=== PATIENT | female | born 1940 | race African-American/Black ===

== ENCOUNTER 2018-08-22 08:27 | Emergency (ER) | payer OTHER ==
[~2018-08-22] VITALS: Ht 162.6 cm; Wt 86.2 kg
[~2018-08-22 08:27] MED LIST: CALCIUM 600 +1 EAC8; COMPLETE SENIO1 EACH; FERROUS GLUCON240 MG PO; FIBER THERAPY PO; HYDROCHLOROTHIA25 MG PO; LEVOTHYROXINE125 MCG PO; LOSARTAN POTAS100 MG PO; LOSARTAN POTASS50 MG PO; LOVASTATIN20 MG PO; METFORMIN PO; OMEPRAZOLE20 M1 PO; VITAMIN C PO; [UNRECOGNIZED DRUG - OTHER] PO
--- OUTSIDE RECORDS SUMMARY | 2018-08-22 08:30 | XMS REPORT | Clinical Summary ---
Author Author [facility] Organization [facility] Address Unknown Phone Unavailable Care Team Providers Care Airway Controller Name Role Phone Charles Cole MD PCP Allergies Comments Active Allergy Reactions Severity Noted Date Iodine Hives Medium 07/20/2018 Penicillins Swelling Medium 07/20/2018 Medications End Date Status Medication Sig Dispensed Refills Start Date Active multivitamin with Take 1 tablet 0 minerals tablet by mouth daily. Active calcium carbonate-vitamin Take 1 tablet 0 D3 500 mg-200 unit per by mouth 2 tablet (two) times a day with meals. Active polyethylene glycol Take 17 g by 0 (MIRALAX) 17 gram packet mouth daily as needed for constipation. 07/22/2018 Discontinued levothyroxine (SYNTHROID, Take 112 mcg 0 LEVOXYL) 112 mcg tablet by mouth daily. 07/22/2018 Discontinued metFORMIN (GLUCOPHAGE) Take 500 mg 0 500 mg tablet by mouth daily with breakfast. 07/22/2018 Discontinued omeprazole (PriLOSEC) 40 Take 40 mg by 0 MG capsule mouth daily. 07/22/2018 Discontinued lovastatin (MEVACOR) 10 Take 20 mg by 0 MG tablet mouth nightly. 07/22/2018 Discontinued clopidogrel (PLAVIX) 75 Take 75 mg by 0 mg tablet mouth daily. 07/22/2018 Discontinued gabapentin (NEURONTIN) Take 100 mg 0 100 mg capsule by mouth 3 (three) times a day. 07/22/2018 Discontinued metoprolol tartrate Take 25 mg by 0 (LOPRESSOR) 25 mg tablet mouth 2 (two) times a day. 08/21/2018 metoprolol tartrate Take 1 tablet 60 tablet 0 (LOPRESSOR) 25 mg tablet (25 mg total) 9 by mouth 2 (two) times a day for 30 days. 08/21/2018 metFORMIN (GLUCOPHAGE) Take 1 tablet 30 tablet 0 500 mg tablet (500 mg 9 total) by mouth daily with breakfast for 30 days. 08/21/2018 lovastatin (MEVACOR) 10 Take 2 60 tablet 0 07/22/201 MG tablet tablets (20 9 mg total) by mouth nightly for 30 days. 08/21/2018 gabapentin (NEURONTIN) Take 1 90 capsule 0 100 mg capsule capsule (100 9 mg total) by mouth 3 (three) times a day for 30 days. 07/28/2018 predniSONE (DELTASONE) 20 Take 1 tablet 5 tablet 0 07/23/ mg tablet (20 mg total) 9 by mouth daily for 5 days. 08/21/2018 clopidogrel (PLAVIX) 75 Take 1 tablet 30 tablet 0 201 mg tablet (75 mg total) 9 by mouth daily for 30 days. 08/21/2018 omeprazole (PriLOSEC) 40 Take 1 30 capsule 0 MG capsule capsule (40 9 mg total) by mouth daily for 30 days. 08/21/2018 levothyroxine (SYNTHROID, Take 1 tablet 30 tablet 0 LEVOXYL) 112 mcg tablet (112 mcg 9 total) by mouth daily for 30 days. Active Problems Problem Noted Date Right knee pain 07/20/2018 Encounters Care Team Description Date Type Specialty Paul, MD Jarvis Alcocer Jr., Tanseem Hamad Mohamed A, MD Allencherril, Mike Damian MD Right knee pain, unspecified chronicity (Primary Dx); Physical deconditioning 07/20/2018 Emergency General Internal Medicine - 07/23/2018 07/20/2018 Travel after 08/21/2017 Social History Date Tobacco Use Types Packs/Day Years Used Never Smoker Smokeless Tobacco: Never Used Alcohol Use Drinks/Week oz/Week Comments No Alcohol Habits Answer Date Recorded How often do you have a drink containing alcohol? Never 07/20/2018 How many drinks containing alcohol do you have on Not asked a typical day when you are drinking? How often do you have six or more drinks on one Not asked occasion? Sex Assigned at Date Recorded Not on file Industry Job Start Date Occupation Not on file Not on file Not on file Travel End Travel History Travel Start No recent travel history available. Last Filed Vital Signs Time Taken Vital Sign Reading 07/23/2018 7:32 AM CDT Blood Pressure 179/76 07/23/2018 8:00 AM CDT Pulse 76 07/23/2018 7:32 AM CDT Temperature 36.5 C (97.7 F) 07/23/2018 7:32 AM CDT Respiratory Rate 17 07/23/2018 7:32 AM CDT Oxygen Saturation 97% - Inhaled Oxygen - Concentration 07/20/2018 5:32 PM CDT Weight 83.9 kg (185 lb) 07/20/2018 11:52 PM CDT Height 167.6 cm (5' 6") 07/20/2018 5:32 PM CDT Body Mass Index 29.86 Plan of Treatment Health Maintenance Due Date Last Done Comments SHINGLES VACCINES (#1) 1989 65+ PNEUMOCOCCAL VACCINE 2004 (1 of 2 - PCV13) PNEUMOCOCCAL 2004 POLYSACCHARIDE VACCINE AGE 65 AND OVER INFLUENZA VACCINE 10/19/2018 Procedures Comments Procedure Name Priority Date/Time Associated Diagnosis POC GLUCOSE Routine 07/23/2018 6:08 AM CDT POC GLUCOSE Routine 07/22/2018 8:04 PM CDT POC GLUCOSE Routine 07/22/2018 4:16 PM CDT POC GLUCOSE Routine 07/22/2018 11:15 AM CDT POC GLUCOSE Routine 07/22/2018 6:22 AM CDT ESTIMATED GFR Routine 07/22/2018 5:05 AM CDT HC COMPLETE BLD COUNT Routine 07/22/2018 W/AUTO DIFF 5:05 AM CDT BASIC METABOLIC PANEL Routine 07/22/2018 5:05 AM CDT POC GLUCOSE Routine 07/21/2018 8:43 PM CDT POC GLUCOSE Routine 07/21/2018 4:15 PM CDT POC GLUCOSE Routine 07/21/2018 10:47 AM CDT POC GLUCOSE Routine 07/21/2018 6:03 AM CDT ESTIMATED GFR Routine 07/21/2018 5:41 AM CDT THYROID STIMULATING Routine 07/21/2018 HORMONE 5:41 AM CDT LIPID PANEL Routine 07/21/2018 5:41 AM CDT B NATRIURETIC PEPTIDE Routine 07/21/2018 5:41 AM CDT BASIC METABOLIC PANEL Routine 07/21/2018 5:41 AM CDT PROTHROMBIN TIME WITH INR Routine 07/21/2018 5:41 AM CDT HC COMPLETE BLD COUNT Routine 07/21/2018 W/AUTO DIFF 5:41 AM CDT POC GLUCOSE Routine 07/21/2018 12:01 AM CDT XR KNEE 4+ VW RIGHT STAT 07/20/2018 7:06 PM CDT GRAM STAIN Routine 07/20/2018 6:53 PM CDT URINE CULTURE Routine 07/20/2018 6:53 PM CDT ESTIMATED GFR STAT 07/20/2018 6:29 PM CDT B NATRIURETIC PEPTIDE STAT 07/20/2018 6:29 PM CDT TROPONIN Routine 07/20/2018 6:29 PM CDT HC COMPLETE BLD COUNT STAT 07/20/2018 W/AUTO DIFF 6:29 PM CDT COMPREHENSIVE METABOLIC STAT 07/20/2018 PANEL 6:29 PM CDT URINALYSIS SCREEN AND Routine 07/20/2018 MICROSCOPY, WITH REFLEX 6:27 PM CDT TO CULTURE ECG ED PRELIMINARY Routine 07/20/2018 INTERPRETATION 6:15 PM CDT ECG 12-LEAD STAT 07/20/2018 6:05 PM CDT after 08/21/2017 Results * POC glucose (07/23/2018 6:08 AM CDT) Only the most recent of 10 results within the time period is included. [facility] POC glucose 96 65 - 100 mg/dL [facility] Comment: SABIANIST SAN Meter ID: [id number] [facility] Solar Installation Technician: Rafaela Charlton [facility] Specimen Performing Organization Address City/[facility] Mex[facility]ode Phone Number [facility] OF [address] * Estimated GFR (07/22/2018 5:05 AM CDT) Only the most recent of 3 results within the time period is included. [facility] Estimated GFR 81 mL/min/1.73 m2 [facility] G1 >=90 Normal or high G2 60-89Mildly decreased [id number] Mildly to moderately decreased [id number] Moderately to severely decreased G4 15-29Severely decreased G5 <15Kidney failure The eGFR was calculated using the Chronic Kidney Disease Epidemiology Collaboration (CKD-EPI) equation. Interpretation is based on recommendations of the National Kidney Foundation-Kidney Disease Outcomes Quality Initiative (NKF-KDOQI) published in 2014. Specimen Plasma specimen Performing Organization Address City/[facility]/Zipcode Phone Number [facility] [place] [address] PATHOLOGY [facility]ICINE [address] * CBC with platelet and differential (07/22/2018 5:05 AM CDT) Only the most recent of 3 results within the time period is included. [facility] WBC 9.4 4.2 - 11.0 k/uL [facility] RBC 3.63 (L) 4.04 - 5.86 m/uL [facility] HGB 10.1 (L) 11.5 - 15.3 g/dL [facility] HCT 32.9 (L) 34.0 - 45.0 % [facility] MCV 90.6 80.0 - 98.0 fL [facility] MCH 27.8 27.0 - 34.0 pg [facility] MCHC 30.7 (L) 31.5 - 36.5 g/dL [facility] RDW - SD 45.0 37.0 - 51.0 fL [facility] MPV 10.0 7.4 - 10.4 fL [facility] Platelet count 466 (H) 150 - 400 k/uL [facility] Nucleated RBC 0.00 /100 WBC [facility] Neutrophils 59.9 36.0 - 66.0 % [facility] Lymphocytes 32.6 24.0 - 44.0 % [facility] Monocytes 6.3 (H) 0.0 - 6.0 % [facility] Eosinophils 0.5 0.0 - 6.0 % [facility] Basophils 0.5 0.0 - 1.2 % [facility] Immature 0.2 0.0 - 1.0 % [facility] granulocytes [facility] Specimen Blood Performing Organization Address City/State/Zipcode Phone Number [facility] OF [address] [place] [address] PATHOLOGY AND GENOMIC MEDICINE [address] * Basic metabolic panel (07/22/2018 5:05 AM CDT) Only the most recent of 2 results within the time period is included. Sodium 141 135 - 150 mEq/L [facility] Potassium 3.9 3.5 - 5.0 mEq/L [facility] Chloride 101 98 - 112 mEq/L [facility] CO2 27 24 - 31 mmol/L [facility] Anion gap 13@ANIO 7 - 15 mEq/L [facility] BUN 24 (H) 7 - 18 mg/dL [facility] Creatinine 0.80 0.50 - 0.90 mg/dL [facility] Glucose 95 65 - 100 mg/dL [facility] Calcium 10.0 8.8 - 10.2 mg/dL [facility] Specimen Plasma specimen Performing Organization Address City/[facility]/Zipcode Phone Number [facility] DEPARTMENT OF [address] [place] [address] PATHOLOGY AND GENOMIC MEDICINE [place] [id number] * Prothrombin time with INR (07/21/2018 5:41 AM CDT) Pathologist [facility] Prothrombin 14.0 11.5 - 14.5 sec [facility] INR 1.11 [facility] Comment: SABIANIST [facility] For patients on anticoagulant BHAVANI therapy, reference ranges HOSPITAL below: Indication: INR Value Treatment of Venous Thrombosis, 2.0-3.0 pulmonary emboli, or prophylaxis of a venous thrombosis, or systemic emboli. High dose, high risk patients 3.0-4.5 with mechanical valves. NOTE:INR values over 3.0 are sometimes associated with gastrointestinal hemorrhage, especially values over 4.0. Specimen Blood Performing Organization Address City/[facility] Mexicocode Phone Number [facility] DEPARTMENT OF [address] [place] [address] PATHOLOGY AND GENOMIC MEDICINE [facility] [address] * Thyroid stimulating hormone (07/21/2018 5:41 AM CDT) Pathologist [facility] TSH 19.44 (H) 0.27 - 4.20 uIU/mL [facility] Specimen Plasma specimen Performing Organization Address City/State/Zipcode Phone Number [facility] DEPARTMENT OF [address] [place] [address] PATHOLOGY AND GENOMIC MEDICINE [place] [id number] * B natriuretic peptide (07/21/2018 5:41 AM CDT) Only the most recent of 2 results within the time period is included. Pathologist [facility] BNP 30 0 - 100 pg/mL [facility] Specimen Blood Performing Organization Address City/[facility]/Zipcode Phone Number [facility] DEPARTMENT OF [address] [place] [address] PATHOLOGY AND GENOMIC MEDICINE [facility] AGUIL[address] * Lipid panel (07/21/2018 5:41 AM CDT) Cholesterol 116 0 - 199 mg/dL [facility] Triglycerides 87 0 - 149 mg/dL [facility] HDL cholesterol 39 (L) 40 - 9,999 mg/dL [facility] LDL cholesterol 74Comment: Result obtained by 0 - 99 mg/dL [facility] direct LDL measurement [facility] Lipid panel See below [facility] interpretation Comment: [facility] Total Cholesterol [facility] (mg/dL) [facility] LDL Cholesterol (mg/dL) <200 Desirable <100 Optimal 200-239Borderline -[id number] 29Near or above optimal >=240High 130-159Borderline- high 160-189High >=190Very high HDL Cholesterol (mg/dL) Triglycerides (mg/dL) <40Low <150 Normal >=60 High 150-199Borderline- high 200-499High >=500Very high Risk Catergories that modify LDL goals. Risk Catergories LDL goal (mg/dL) CHD and CHD risk equivalent <100 (10-year risk >20%) Multiple (2+) risk factors <130 (10-year risk=<20%) 0-1 risk factors <160 (<10-year risk) Defining levels of lipids in metabolic syndrome Triglycerides >=150 mg/dL HDL Cholesterol Men <40 mg/dL Women <50 mg/dL Non-HDL cholesterol is a second target for therapy in persons with high triglycerides (>=200 mg/dL) Specimen Plasma specimen Performing Organization Address City/[facility]/Zipcode Phone Number [facility] DEPARTMENT OF [address] [place] [address] PATHOLOGY AND GENOMIC MEDICINE [facility] [address] * XR Knee 4+ Vw Right (07/20/2018 7:06 PM CDT) Specimen Narrative Performed At EXAMINATION:XR KNEE 4VW RIGHT HM [facility] CLINICAL HISTORY:pain COMPARISON:None. IMPRESSION: No acute fracture or dislocation is present. 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 These are most significant in the medial compartment. A moderately-sized suprapatellar joint effusion is present. [id number] Procedure Note Hm Interface, Radiology Results Incoming - 07/20/2018 7:19 PM CDT EXAMINATION: XR KNEE 4 VW RIGHT CLINICAL HISTORY: pain COMPARISON: None. IMPRESSION: No acute fracture or dislocation is present. 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 These are most significant in the medial compartment. A moderately-sized suprapatellar joint effusion is present. [id number] Performing Organization Address City/[facility]/Zipcode Phone Number [facility] [address] [place] [address] * Gram stain (07/20/2018 6:53 PM CDT) Pathologist [facility] Gram stain No WBC's or organisms seen. [facility] result Comment: SABIANIST Specimen [facility] Specimen Source: Urine Specimen Site: Clean catch Specimen Urine Performing Organization Address [facility] Mex[facility]ode Phone Number [facility] [place] [address] PATHOLOGY AND [facility] MEDICINE [address] * Urine culture (07/20/2018 6:53 PM CDT) Pathologist [facility] Urine culture Mixed maribell <=10-3 col/cc [facility] isolate Comment: SABIANIST Specimen Information HOSPITAL Specimen Source: Urine Specimen Site: Clean catch Specimen Urine Performing Organization Address [facility] Mex[facility]ocotx Phone Number [facility] DEPARTMENT OF [address] [place] [address] PATHOLOGY AND GENOMIC MEDICINE [address] * Troponin (07/20/2018 6:29 PM CDT) Pathologist [facility] Troponin <0.30 0.00 - 0.30 ng/mL [facility] Comment: SABIANIST AGUILAR 0.11 - 1.49 [facility] indicate increased risk of acute coronary syndrome. >=1.5 ng/ml Consistent with acute myocardial infarction. The diagnostic value of a single normal or non-diagnostic result is questionable.Serial samples at 2-6 hour intervals are required to rule out acute myocardial injury. Specimen Plasma specimen Performing Organization Address City/State/Zipcode Phone Number [facility] DEPARTMENT OF [address] [place] [address] PATHOLOGY AND GENOMIC MEDICINE [place] [address] [address] * Comprehensive metabolic panel (07/20/2018 6:29 PM CDT) Sodium 139 135 - 150 mEq/L [facility] Potassium 3.8 3.5 - 5.0 mEq/L [facility] Chloride 100 98 - 112 mEq/L [facility] CO2 24 24 - 31 mmol/L [facility] Anion gap 15@ANIO 7 - 15 mEq/L [facility] BUN 17 7 - 18 mg/dL [facility] Creatinine 0.90 0.50 - 0.90 mg/dL [facility] Glucose 211 (H) 65 - 100 mg/dL [facility] Calcium 9.2 8.8 - 10.2 mg/dL [facility] Protein 8.1 6.3 - 8.3 g/dL [facility] Albumin 3.0 (L) 3.5 - 5.0 g/dL [facility] A/G ratio 0.6 (L) 0.7 - 3.8 [facility] Alkaline 143 (H) 0 - 104 U/L [facility] phosphatase [facility] AST 45 (H) 10 - 35 U/L [facility] ALT 30 5 - 50 U/L [facility] Total bilirubin 0.4 0.2 - 1.2 mg/dL [facility] Specimen Plasma specimen Performing Organization Address City/State/Zipcode Phone Number [facility] OF [address] [place] [address] PATHOLOGY AND GENOMIC MEDICINE [place] [address] [address] * Urinalysis screen and microscopy, with reflex to culture (07/20/2018 6:27 PM CDT) Specimen site Clean catch [facility] Color, UA Mari [facility] Appearance, UA Clear [facility] Specific 1.028 1.001 - 1.035 [facility] gravity, UA [facility] pH, UA 5.0 5.0 - 8.5 [facility] Protein, UA 1+ (A) Negative [facility] Glucose, UA Negative Negative [facility] Ketones, UA Negative Negative [facility] Bilirubin, UA Negative Negative [facility] Blood, UA Negative Negative [facility] Nitrite, UA Negative Negative [facility] Urobilinogen, 4.0 (A) <2.0 [facility] Leukocyte Negative Negative [facility] esterase, [facility] Epithelial Many /HPF [facility] cells, [facility] WBC, UA 10 (A) 0 - 5 /HPF [facility] RBC, UA 2 0 - 5 /HPF [facility] Bacteria, UA None seen None seen [facility] Yeast, UA None seen [facility] Yeast with None seen [facility] pseudohyphae, [facility] Hyaline casts, 1 /LPF [facility] Specimen Urine Performing Organization Address City/State/Zipcode Phone Number [facility] DEPARTMENT OF [facility] [place] [address] PATHOLOGY AND GENOMIC MEDICINE [facility] [address] * ECG ED Preliminary Interpretation - Not an Order (07/20/2018 6:15 PM CDT) Narrative Performed At Narendra Miller Jr., MD 07/21/2018 10:03 AM ECG ED Preliminary Interpretation - Not an Order Performed by: Narendra Miller Jr., MD Authorized by: Narendra Miller Jr., MD ECG reviewed by ED Physician in the absence of a tanning solution maker: yes Previous ECG: Previous ECG:Unavailable Interpretation: Interpretation: normal Rate: ECG rate:89 ECG rate assessment: normal QRS: QRS axis:Left T waves: T waves: inverted Inverted:II, III, aVF, V6 and V3 * ECG 12 lead (07/20/2018 6:05 PM CDT) Ventricular 89 [facility] rate Atrial rate 89 [facility] MO interval 144 [facility] QRSD interval 88 [facility] QT interval 362 [facility] QTC interval 440 [facility] P axis 1 61 [facility] QRS axis 1 -34 [facility] T wave axis 194 [facility] EKG impression Normal sinus rhythm-Left axis [facility] deviation-T wave abnormality, consider inferior ischemia-T wave abnormality, consider anterolateral ischemia-Abnormal ECG-No previous ECGs available- Specimen Narrative Performed At Performing Organization Address City/State/Zipcode Phone Number [facility] [address] [place] [address] after 08/21/2017 Insurance Type Payer Benefit Subscriber ID Effective Phone Address Plan / Dates Group HMO [employer] TEX[employer] xxxxxxxxx 2018-P PATITO mustafa (Home) [place] [address] Advance Directives Patient has advance care planning documents on file. For more information, dave christine contact: Efrain Burgess [address] [place] [address]
--- OUTSIDE RECORDS SUMMARY | 2018-08-22 08:31 | XMS REPORT ---
Author Author [facility] Address Unknown Phone Unavailable Care Team Providers Care Agriculture Engineer Name Role Phone Unavailable Unavailable Payers Payer Name Policy Type Policy Number Effective Date Expiration Date Problems This patient has no known problems. Allergies, Adverse Reactions, Alerts Allergy Name Allergy Type Status Severity Reaction(s) Onset Date Inactive Date Treating Clinician Comments Cephalosporins DA Active U 2018-06-06 00:00:00 Sulfa (Sulfonamide Antibiotics) DA Active U 2018-06-06 00:00:00 codeine DA Active U 2018-06-06 00:00:00 aspirin DA Active U 2018-06-06 00:00:00 penicillin V DA Active U 2018-06-06 00:00:00 erythromycin base DA Active U 2018-06-06 00:00:00 metronidazole DA Active U 2018-06-06 00:00:00 oxaprozin DA Active U 2018-06-06 00:00:00 .DURAPHEN DA Active U 2007-01-19 00:00:00 ASPIRIN DA Active U 2007-01-19 00:00:00 CEPHALOSPORINS DA Active U 2007-01-19 00:00:00 CODEINE DA Active U 2007-01-19 00:00:00 DAYPRO DA Active U 2007-01-19 00:00:00 EES - ERYTHROMYCIN DA Active U 2007-01-19 00:00:00 FLAGYL DA Active U 2007-01-19 00:00:00 MYCIN ANTIBIOTICS DA Active U 2007-01-19 00:00:00 No Known Contrast Allergies DA Active U 2007-01-19 00:00:00 No Known Food Allergies DA Active U 2007-01-19 00:00:00 No Known Other Allergies DA Active U 2007-01-19 00:00:00 PENICILLIN DA Active U 2007-01-19 00:00:00 SULFA DRUGS DA Active U 2007-01-19 00:00:00 codeine DA Active U 2002-04-09 00:00:00 aspirin DA Active U 2002-04-09 00:00:00 penicillin V DA Active U 2002-04-09 00:00:00 erythromycin base DA Active U 2002-04-09 00:00:00 oxaprozin DA Active U 2002-04-09 00:00:00 Medications This patient has no known medications. Results Test Description Test Time Test Comments Text Results Atomic Results Result Comments GLUBED 2018-06-16 16:56:00 GLUBED (test code=GLUBED) 144 MG/DL 70-110 Performed by certified radial drill press set up operator at [facility] [id number] 13:01:00* Test Item Value Reference Range Comments GLUBED (test code=GLUBED) 107 MG/DL 70-110 Performed by certified radial drill press set up operator at [facility] [id number] 08:55:00* Test Item Value Reference Range Comments GLUBED (test code=GLUBED) 87 MG/DL 70-110 Performed by certified radial drill press set up operator at [facility] BASIC METABOLIC [id number] 07:44:00* Test Item Value Reference Range Comments SODIUM (test code=NA) 138 mEq/L 134-147 POTASSIUM (test code=K) 3.9 mEq/L 3.4-5.0 CHLORIDE (test code=CL) 106 mEq/L 100-108 CARBON DIOXIDE (test code=CO2) 23 mEq/L 21-33 ANION GAP (test code=GAP) 13 0-20 GLUCOSE (test code=GLU) 93 mg/dL 70-110 BLOOD UREA NITROGEN (test code=BUN) 12 mg/dL 7-18 GLOMERULAR FILTRATION RATE (test code=GFR) 69.2 70-80 Units of measure=ml/min/1.73 m2 CREATININE (test code=CREAT) 0.8 mg/dL 0.6-1.3 CALCIUM (test code=CA) 8.8 mg/dL 8.0-10.5 [id number] 21:16:00* Test Item Value Reference Range Comments GLUBED (test code=GLUBED) 134 MG/DL 70-110 Performed by certified radial drill press set up operator at [facility] [id number] 17:19:00* Test Item Value Reference Range Comments GLUBED (test code=GLUBED) 100 MG/DL 70-110 Performed by certified radial drill press set up operator at [facility] [id number] 12:22:00* Test Item Value Reference Range Comments GLUBED (test code=GLUBED) 177 MG/DL 70-110 Performed by certified radial drill press set up operator at [facility] [id number] 08:54:00* Test Item Value Reference Range Comments GLUBED (test code=GLUBED) 97 MG/DL 70-110 Performed by certified radial drill press set up operator at [facility] BASIC METABOLIC [id number] 08:18:00* Test Item Value Reference Range Comments SODIUM (test code=NA) 135 mEq/L 134-147 POTASSIUM (test code=K) 4.6 mEq/L 3.4-5.0 CHLORIDE (test code=CL) 108 mEq/L 100-108 CARBON DIOXIDE (test code=CO2) 19 mEq/L 21-33 ANION GAP (test code=GAP) 13 0-20 GLUCOSE (test code=GLU) 86 mg/dL 70-110 BLOOD UREA NITROGEN (test code=BUN) 12 mg/dL 7-18 GLOMERULAR FILTRATION RATE (test code=GFR) 69.2 70-80 Units of measure=ml/min/1.73 m2 CREATININE (test code=CREAT) 0.8 mg/dL 0.6-1.3 CALCIUM (test code=CA) 8.0 mg/dL 8.0-10.5 CREATINE KINASE (CK)2018-06-15 08:18:00* Test Item Value Reference Range Comments CREATINE KINASE (CK) (test code=CK) 538 35-232 Result is in INTERNATIONAL UNITS/LITER [id number] 20:19:00* Test Item Value Reference Range Comments GLUBED (test code=GLUBED) 161 MG/DL 70-110 Performed by certified radial drill press set up operator at [facility] [id number] 17:53:00* Test Item Value Reference Range Comments GLUBED (test code=GLUBED) 155 MG/DL 70-110 Performed by certified radial drill press set up operator at [facility] [id number] 12:14:00* Test Item Value Reference Range Comments GLUBED (test code=GLUBED) 106 MG/DL 70-110 Performed by certified radial drill press set up operator at [facility] [id number] 07:58:00* Test Item Value Reference Range Comments GLUBED (test code=GLUBED) 89 MG/DL 70-110 Performed by certified radial drill press set up operator at [facility] BASIC METABOLIC [id number] 07:37:00* Test Item Value Reference Range Comments SODIUM (test code=NA) 136 mEq/L 134-147 POTASSIUM (test code=K) 5.4 mEq/L 3.4-5.0 SPECIMEN 1+ HEMOLYZED.Results known to be adversely affected by hemolysis are: Potassium Magnesium LDH Phosphorus CHLORIDE (test code=CL) 110 mEq/L 100-108 CARBON DIOXIDE (test code=CO2) 18 mEq/L 21-33 ANION GAP (test code=GAP) 13 0-20 GLUCOSE (test code=GLU) 70 mg/dL 70-110 BLOOD UREA NITROGEN (test code=BUN) 12 mg/dL 7-18 GLOMERULAR FILTRATION RATE (test code=GFR) 69.2 70-80 Units of measure=ml/min/1.73 m2 CREATININE (test code=CREAT) 0.8 mg/dL 0.6-1.3 CALCIUM (test code=CA) 8.1 mg/dL 8.0-10.5 [id number] 20:58:00* Test Item Value Reference Range Comments GLUBED (test code=GLUBED) 158 MG/DL 70-110 Performed by certified radial drill press set up operator at [facility] [id number] 17:30:00* Test Item Value Reference Range Comments GLUBED (test code=GLUBED) 100 MG/DL 70-110 Performed by certified radial drill press set up operator at [facility] [id number] 13:40:00* Test Item Value Reference Range Comments GLUBED (test code=GLUBED) 119 MG/DL 70-110 Performed by certified radial drill press set up operator at [facility] BASIC METABOLIC [id number] 08:20:00* Test Item Value Reference Range Comments SODIUM (test code=NA) 140 mEq/L 134-147 POTASSIUM (test code=K) 3.8 mEq/L 3.4-5.0 CHLORIDE (test code=CL) 109 mEq/L 100-108 CARBON DIOXIDE (test code=CO2) 25 mEq/L 21-33 ANION GAP (test code=GAP) 10 0-20 GLUCOSE (test code=GLU) 97 mg/dL 70-110 BLOOD UREA NITROGEN (test code=BUN) 14 mg/dL 7-18 GLOMERULAR FILTRATION RATE (test code=GFR) 69.2 70-80 Units of measure=ml/min/1.73 m2 CREATININE (test code=CREAT) 0.8 mg/dL 0.6-1.3 CALCIUM (test code=CA) 7.9 mg/dL 8.0-10.5 [id number] 08:20:00* Test Item Value Reference Range Comments PHOSPHOROUS (test code=PHOS) 2.8 mg/dL 2.5-4.9 CREATINE KINASE (CK)2018-06-13 08:20:00* Test Item Value Reference Range Comments CREATINE KINASE (CK) (test code=CK) 1247 35232 Result is in INTERNATIONAL UNITS/LITER [id number] 08:20:00* Test Item Value Reference Range Comments MAGNESIUM (test code=MAG) 2.20 mg/dL 1.8-2.4 [id number] 08:17:00* Test Item Value Reference Range Comments GLUBED (test code=GLUBED) 93 MG/DL 70-110 Performed by certified radial drill press set up operator at [facility] [id number] 20:37:00* Test Item Value Reference Range Comments GLUBED (test code=GLUBED) 154 MG/DL 70-110 Performed by certified radial drill press set up operator at [facility] [id number] 16:50:00* Test Item Value Reference Range Comments GLUBED (test code=GLUBED) 186 MG/DL 70-110 Performed by certified radial drill press set up operator at [facility] [id number] 12:40:00* Test Item Value Reference Range Comments GLUBED (test code=GLUBED) 102 MG/DL 70-110 Performed by certified radial drill press set up operator at [facility] CREATINE KINASE (CK)2018-06-12 11:29:00* Test Item Value Reference Range Comments CREATINE KINASE (CK) (test code=CK) 2008 35-232 Result is in INTERNATIONAL UNITS/LITER [id number] 08:33:00* Test Item Value Reference Range Comments GLUBED (test code=GLUBED) 100 MG/DL 70-110 Performed by certified radial drill press set up operator at [facility] BASIC METABOLIC [id number] 08:05:00* Test Item Value Reference Range Comments SODIUM (test code=NA) 139 mEq/L 134-147 POTASSIUM (test code=K) 3.8 mEq/L 3.4-5.0 CHLORIDE (test code=CL) 107 mEq/L 100-108 CARBON DIOXIDE (test code=CO2) 26 mEq/L 21-33 ANION GAP (test code=GAP) 10 0-20 GLUCOSE (test code=GLU) 113 mg/dL 70-110 BLOOD UREA NITROGEN (test code=BUN) 16 mg/dL 7-18 GLOMERULAR FILTRATION RATE (test code=GFR) 60.4 70-80 Units of measure=ml/min/1.73 m2 CREATININE (test code=CREAT) 0.9 mg/dL 0.6-1.3 CALCIUM (test code=CA) 8.4 mg/dL 8.0-10.5 [id number] 21:47:00* Test Item Value Reference Range Comments GLUBED (test code=GLUBED) 174 MG/DL 70-110 Performed by certified radial drill press set up operator at [facility] [id number] 16:51:00* Test Item Value Reference Range Comments GLUBED (test code=GLUBED) 132 MG/DL 70-110 Performed by certified radial drill press set up operator at [facility] URINALYSIS [id number] 16:08:00* Test Item Value Reference Range Comments UA COLOR (test code=COLU) YELLOW YEL/STRAW UA APPEARANCE (test code=APPU) CLEAR CLEAR UA GLUCOSE DIPSTICK (test code=DGLUU) NEGATIVE NEGATIVE UA BILIRUBIN DIPSTICK (test code=BILU) NEGATIVE NEGATIVE UA KETONE DIPSTICK (test code=KETU) NEGATIVE NEGATIVE UA SPECIFIC GRAVITY (test code=SGU) 1.015 1.005-1.030 UA BLOOD DIPSTICK (test code=NATALIYA) NEGATIVE NEGATIVE UA PH DIPSTICK (test code=NIKKI) 6.0 5.0-7.0 UA PROTEIN DIPSTICK (test code=PROU) NEGATIVE NEGATIVE UA UROBILINIOGEN DIPSTICK (test code=URO) 4.0 mg/dL 0.2-1.0 UA NITRITE DIPSTICK (test code=ANA PAULA) NEGATIVE NEGATIVE UA LEUKOCYTE ESTERASE DIPSTICK (test code=LEUU) NEGATIVE NEGATIVE UA WBC (test code=WBCU) 0-3 WBC/HPF 0-3 UA RBC (test code=RBCU) 0-3 RBC/HPF 0-3 UA BACTERIA (test code=BACU) NONE SEEN /HPF NONE SEEN UA SQUAMOUS CELLS (test code=SQU) NONE SEEN /HPF NONE SEEN UA MUCUS (test code=MUCU) TRACE /LPF NONE SEEN UA YEAST (BUDDING) (test code=YEASTUBD) 1+ /HPF NONE UA CULT [id number] 16:08:00* Test Item Value Reference Range Comments UA CULTURE NEEDED? (test code=UACULT) NO, WBC<10 Criteria Culture Chk Criteria not met, Urine Culture cancelled. [id number] 12:09:00* Test Item Value Reference Range Comments GLUBED (test code=GLUBED) 145 MG/DL 70-110 Performed by certified radial drill press set up operator at [facility] BASIC METABOLIC [id number] 08:10:00* Test Item Value Reference Range Comments SODIUM (test code=NA) 140 mEq/L 134-147 POTASSIUM (test code=K) 3.6 mEq/L 3.4-5.0 CHLORIDE (test code=CL) 108 mEq/L 100-108 CARBON DIOXIDE (test code=CO2) 23 mEq/L 21-33 ANION GAP (test code=GAP) 13 0-20 GLUCOSE (test code=GLU) 101 mg/dL 70-110 BLOOD UREA NITROGEN (test code=BUN) 13 mg/dL 7-18 GLOMERULAR FILTRATION RATE (test code=GFR) 80.7 70-80 Units of measure=ml/min/1.73 m2 CREATININE (test code=CREAT) 0.7 mg/dL 0.6-1.3 CALCIUM (test code=CA) 8.3 mg/dL 8.0-10.5 CREATINE KINASE (CK)2018-06-11 08:10:00* Test Item Value Reference Range Comments CREATINE KINASE (CK) (test code=CK) 4451 35-232 Result is in INTERNATIONAL UNITS/LITER [id number] 07:53:00* Test Item Value Reference Range Comments GLUBED (test code=GLUBED) 92 MG/DL 70-110 Performed by certified radial drill press set up operator at [facility] [id number] 20:14:00* Test Item Value Reference Range Comments GLUBED (test code=GLUBED) 130 MG/DL 70-110 Performed by certified radial drill press set up operator at [facility] [id number] 17:19:00* Test Item Value Reference Range Comments GLUBED (test code=GLUBED) 105 MG/DL 70-110 Performed by certified radial drill press set up operator at [facility] - DUP VEIN [id number] 13:21:00 Name: SOLEDAD FRASER [facility] : 1940 Age/S: 78 / F [address] [place] [address] Blvd Unit #: [id number] Loc: [place] [address] Phys: Theodore Alvarez SHELLS INSPECTOR Acct: [id number] Dis Date: Status: ADM IN PHONE #: [phone] Exam Date: 06/10/2018 1235 FAX #: [phone] Reason: Right LE swelling EXAMS: CPT CODE: [id number] DUP VEIN RUTH [address] PROCEDURE: BILATERAL LOWER EXTREMITY VENOUS ULTRASOUND INDICATION: Right lower extremity edema COMPARISON: None. TECHNIQUE: Sonographic evaluation of the bilateral lower extremity veins was performed using high resolution B-mode, pulse and color Doppler imaging. FINDINGS: RIGHT: The common femoral, femoral, popliteal and visualized calf veins are patent. Normal venous waveforms. The saphenofemoral junction is unremarkable. LEFT: The femoral, popliteal and visualized calf veins are patent. Normal venous waveforms. There is a short segment of nonocclusive thrombus present within the left common femoral vein. IMPRESSION: 1. No occlusive deep venous thrombosis. 2. Short segment nonocclusive thrombus noted within the left common femoral vein. SL:01 at 1321 Reported and signed by: Gabino Andrea M.D. CC: Theodore Alvarez NP Technologist: Susan Cox RDMS(AB)(OB) Trnscb Date/Time: 06/10/2018 (132) Suhas Orig Print D/T: S: 06/10/2018 (1324) Probe: PAGE 1 Signed Report [id number] 12:29:00* Test Item Value Reference Range Comments GLUBED (test code=GLUBED) 133 MG/DL 70-110 Performed by certified radial drill press set up operator at [facility] BASIC METABOLIC [id number] 08:06:00* Test Item Value Reference Range Comments SODIUM (test code=NA) 142 mEq/L 134-147 POTASSIUM (test code=K) 3.7 mEq/L 3.4-5.0 CHLORIDE (test code=CL) 112 mEq/L 100-108 CARBON DIOXIDE (test code=CO2) 23 mEq/L 21-33 ANION GAP (test code=GAP) 11 0-20 GLUCOSE (test code=GLU) 95 mg/dL 70-110 BLOOD UREA NITROGEN (test code=BUN) 17 mg/dL 7-18 GLOMERULAR FILTRATION RATE (test code=GFR) 80.7 70-80 Units of measure=ml/min/1.73 m2 CREATININE (test code=CREAT) 0.7 mg/dL 0.6-1.3 CALCIUM (test code=CA) 8.1 mg/dL 8.0-10.5 CREATINE KINASE (CK)2018-06-10 08:06:00* Test Item Value Reference Range Comments CREATINE KINASE (CK) (test code=CK) 5985 35-232 Result is in INTERNATIONAL UNITS/LITER [id number] 08:03:00* Test Item Value Reference Range Comments GLUBED (test code=GLUBED) 92 MG/DL 70-110 Performed by certified radial drill press set up operator at [facility] [id number] 21:17:00* Test Item Value Reference Range Comments GLUBED (test code=GLUBED) 142 MG/DL 70-110 Performed by certified radial drill press set up operator at [facility] [id number] 18:13:00* Test Item Value Reference Range Comments GLUBED (test code=GLUBED) 137 MG/DL 70-110 Performed by certified radial drill press set up operator at [facility] [id number] 12:15:00* Test Item Value Reference Range Comments GLUBED (test code=GLUBED) 164 MG/DL 70-110 Performed by certified radial drill press set up operator at [facility] [id number] 07:54:00* Test Item Value Reference Range Comments GLUBED (test code=GLUBED) 93 MG/DL 70-110 Performed by certified radial drill press set up operator at [facility] [id number] 06:46:00* Test Item Value Reference Range Comments GLUBED (test code=GLUBED) 130 MG/DL 70-110 Performed by certified radial drill press set up operator at [facility] BASIC METABOLIC [id number] 05:23:00* Test Item Value Reference Range Comments SODIUM (test code=NA) 142 mEq/L 134-147 POTASSIUM (test code=K) 3.7 mEq/L 3.4-5.0 CHLORIDE (test code=CL) 112 mEq/L 100-108 CARBON DIOXIDE (test code=CO2) 24 mEq/L 21-33 ANION GAP (test code=GAP) 10 0-20 GLUCOSE (test code=GLU) 100 mg/dL 70-110 BLOOD UREA NITROGEN (test code=BUN) 19 mg/dL 7-18 GLOMERULAR FILTRATION RATE (test code=GFR) 69.2 70-80 Units of measure=ml/min/1.73 m2 CREATININE (test code=CREAT) 0.8 mg/dL 0.6-1.3 CALCIUM (test code=CA) 8.0 mg/dL 8.0-10.5 CREATINE KINASE (CK)2018-06-09 05:23:00* Test Item Value Reference Range Comments CREATINE KINASE (CK) (test code=CK) 44009 35-232 Result is in INTERNATIONAL UNITS/LITER BASIC METABOLIC [id number] 04:21:00* Test Item Value Reference Range Comments SODIUM (test code=NA) 142 mEq/L 134-147 POTASSIUM (test code=K) 3.7 mEq/L 3.4-5.0 CHLORIDE (test code=CL) 112 mEq/L 100-108 CARBON DIOXIDE (test code=CO2) 24 mEq/L 21-33 ANION GAP (test code=GAP) 10 0-20 GLUCOSE (test code=GLU) 100 mg/dL 70-110 BLOOD UREA NITROGEN (test code=BUN) 19 mg/dL 7-18 GLOMERULAR FILTRATION RATE (test code=GFR) 69.2 70-80 Units of measure=ml/min/1.73 m2 CREATININE (test code=CREAT) 0.8 mg/dL 0.6-1.3 CALCIUM (test code=CA) 8.0 mg/dL 8.0-10.5 CREATINE KINASE (CK)2018-06-09 04:21:00* Test Item Value Reference Range Comments CREATINE KINASE (CK) (test code=CK) 35-232 [id number] 20:36:00* Test Item Value Reference Range Comments GLUBED (test code=GLUBED) 138 MG/DL 70-110 Performed by certified radial drill press set up operator at [facility] [id number] 11:54:00* Test Item Value Reference Range Comments GLUBED (test code=GLUBED) 114 MG/DL 70-110 Performed by certified radial drill press set up operator at [facility] [id number] 08:13:00* Test Item Value Reference Range Comments GLUBED (test code=GLUBED) 138 MG/DL 70-110 Performed by certified radial drill press set up operator at [facility] BASIC METABOLIC [id number] 06:29:00* Test Item Value Reference Range Comments SODIUM (test code=NA) 143 mEq/L 134-147 POTASSIUM (test code=K) 3.6 mEq/L 3.4-5.0 CHLORIDE (test code=CL) 113 mEq/L 100-108 CARBON DIOXIDE (test code=CO2) 22 mEq/L 21-33 ANION GAP (test code=GAP) 12 0-20 GLUCOSE (test code=GLU) 128 mg/dL 70-110 BLOOD UREA NITROGEN (test code=BUN) 20 mg/dL 7-18 GLOMERULAR FILTRATION RATE (test code=GFR) 69.2 70-80 Units of measure=ml/min/1.73 m2 CREATININE (test code=CREAT) 0.8 mg/dL 0.6-1.3 CALCIUM (test code=CA) 8.1 mg/dL 8.0-10.5 CREATINE KINASE (CK)2018-06-08 06:29:00* Test Item Value Reference Range Comments CREATINE KINASE (CK) (test code=CK) 11580 35-232 Result is in INTERNATIONAL UNITS/LITER B-TYPE NATRIURETIC [id number] 05:56:00* Test Item Value Reference Range Comments B-TYPE NATRIURETIC PEPTIDE (test code=BNP) 903.0 PG/ML 0-100 BASIC METABOLIC [id number] 05:44:00* Test Item Value Reference Range Comments SODIUM (test code=NA) 143 mEq/L 134-147 POTASSIUM (test code=K) 3.6 mEq/L 3.4-5.0 CHLORIDE (test code=CL) 113 mEq/L 100-108 CARBON DIOXIDE (test code=CO2) 22 mEq/L 21-33 ANION GAP (test code=GAP) 12 0-20 GLUCOSE (test code=GLU) 128 mg/dL 70-110 BLOOD UREA NITROGEN (test code=BUN) 20 mg/dL 7-18 GLOMERULAR FILTRATION RATE (test code=GFR) 69.2 70-80 Units of measure=ml/min/1.73 m2 CREATININE (test code=CREAT) 0.8 mg/dL 0.6-1.3 CALCIUM (test code=CA) 8.1 mg/dL 8.0-10.5 CREATINE KINASE (CK)2018-06-08 05:44:00* Test Item Value Reference Range Comments CREATINE KINASE (CK) (test code=CK) 35-232 CBC W/AUTO [id number] 05:00:00* Test Item Value Reference Range Comments WHITE BLOOD CELL (test code=WBC) 12.25 x10 3/uL 4.5-11.0 RED BLOOD CELL (test code=RBC) 3.90 x10 6/uL 3.54-5.02 HEMOGLOBIN (test code=HGB) 10.9 g/dL 11.0-15.0 HEMATOCRIT (test code=HCT) 34.7 % 33.0-45.0 MEAN CELL VOLUME (test code=MCV) 89.0 fL 81.0-99.0 MEAN CELL HGB (test code=MCH) 27.9 pg 27.0-33.0 MEAN CELL HGB CONCETRATION (test code=MCHC) 31.4 g/dL 33.0-37.0 RED CELL DISTRIBUTION WIDTH CV (test code=RDW) 13.7 % 11.5-14.5 RED CELL DISTRIBUTION WIDTH SD (test code=RDW-SD) 44.4 fL 37.0-54.0 PLATELET COUNT (test code=PLT) 253 x10 3/uL 150-400 MEAN PLATELET VOLUME (test code=MPV) 9.9 fL 7.0-9.0 NEUTROPHIL % (test code=NT%) 76.9 % 56.0-77.0 IMMATURE GRANULOCYTE % (test code=IG%) 0.3 % 0.0-2.0 LYMPHOCYTE % (test code=LY%) 14.1 % 14.0-32.0 MONOCYTE % (test code=MO%) 8.0 % 4.8-9.0 EOSINOPHIL % (test code=EO%) 0.3 % 0.3-3.7 BASOPHIL % (test code=BA%) 0.4 % 0.0-2.0 NUCLEATED RBC % (test code=NRBC%) 0.0 % 0-0 NEUTROPHIL # (test code=NT#) 9.41 x10 3/uL 2.0-7.6 IMMATURE GRANULOCYTE # (test code=IG#) 0.04 x10 3/uL 0.00-0.03 LYMPHOCYTE # (test code=LY#) 1.73 x10 3/uL 1.0-3.8 MONOCYTE # (test code=MO#) 0.98 x10 3/uL 0.1-0.8 EOSINOPHIL # (test code=EO#) 0.04 x10 3/uL 0.0-0.2 BASOPHIL # (test code=BA#) 0.05 x10 3/uL 0.0-0.2 NUCLEATED RBC # (test code=NRBC#) 0.00 x10 3/uL 0.0-0.1 MANUAL DIFF REQUIRED (test code=MDIFF) NO - CT HEAD/BRAIN W/O [id number] 00:15:00 Name: SOLEDAD FRASER [facility] : 1940 Age/S: 78 / F [address] [place] [address] Unit #: [id number] Loc: [place] [address] Phys: Sheela Nieves SHELLS INSPECTOR Acct: [id number] Dis Date: Status: ADM IN PHONE #: [phone] Exam Date: 06/07/2018 2348 FAX #: [phone] Reason: WORSENING RT WEAKNESS AND GARBBLE SPEECH EXAMS: CPT CODE: [id number] CT HEAD/BRAIN W/O CONT [id number] PROCEDURE: CT HEAD WITHOUT CONTRAST DATED 06/07/2018. INDICATION: Worsening right-sided weakness. Garbled speech. COMPARISON: CT head dated 06/06/2018. MR brain dated 06/07/[address] of the head was performed using thin slice noncontrast axial images with subsequent sagittal and coronal reconstruction. FINDINGS: The acute lacunar infarct involving the left thalamic nucleus appears stable in size when compared to the MR examination. While the MR demonstrated evidence of petechial type hemorrhage within the center of the infarct, no hemorrhage is visible on the CT examination. Abnormal decreased density involving the white and richardson matter of a portion of the right occipital lobe is compatible with the MR finding of an acute right occipital lobe infarct. While the MR demonstrated the presence of petechial type hemorrhage, no hemorrhage is identified on the CT images. No new abnormal regions of increased or decreased density are identified. The patient demonstrates generalized atrophy and chronic small vessel ischemic white matter changes. The ventricular system is stable in size and configuration without midline shift. No intra or extra-axial masses or fluid collections are identified. There is no CT evidence of acute intracranial hemorrhage. No acute CT abnormalities of the calvarium are detected. The included portions of the paranasal sinuses and mastoid air cells appear clear of acute disease. IMPRESSION: 1. 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 2. 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 SL: 131 at 0015 Reported and signed by: Frandy Pruitt M.D. PAGE 1 Signed Report (CONTINUED) Name: SOLEDAD FRASER [facility] : 1940 Age/S: 78 / F [address] [place], [place] [address]vd Unit #: [id number] Loc: [place] [address] ys: Sheela Nieves [employer] INSPECTOR Acct: [id number] Dis Date: Status: ADM IN PHONE #: [phone] Exam Date: 06/07/2018 2348 FAX #: [phone] Reason: WORSENING RT WEAKNESS AND GARBBLE SPEECH EXAMS: CPT CODE: [id number] CT HEAD/BRAIN W/O CONT 32885 <Continued> CC: Farhan Mansfield MD; Sheela Nieves NP Technologist:RT Aaron(R) CTDI: DLP: Trnscb Date/Time: 06/08/2018 (001) t.[email or web address] Orig Print D/T: S: 06/08/2018 (001) CTDI: DLP: PAGE 2 Signed Report [id number] 00:05:00 * Test Item Value Reference Range Comments GLUBED (test code=GLUBED) 157 MG/DL 70-110 Performed by certified radial drill press set up operator at [facility] [id number] 17:51:00* Test Item Value Reference Range Comments GLUBED (test code=GLUBED) 147 MG/DL 70-110 Performed by certified radial drill press set up operator at [facility] [facility]/W [id number] 17:51:00 FAX: Farhan Mcclellan MD [phone] [place]: St: ADM FAX: Susan Tate NP [phone] Name: SOLEDAD FRASER [facility] : 1940 Age/S: 78/F [address] [place] [address] Unit #: [id number] Loc: G.3301 [facility] X [address] Phys: Susan Tate NP Acct: [id number] Dis Date: Status: ADM IN PHONE #: [phone] Exam Date: 06/07/2018 1710 FAX #: [phone] Reason: subacute vs chronic i nfarct EXAMS: CPT CODE: [id number] MRI BRAIN WO/W CONT 39315 MRI brain without and with contrast 06/07/2018 HIST ORY: Subacute versus chronic infarct PROCEDURE: Multiplanar multis equence imaging of the brain is performed without and with contrast. 18 m L of MultiHance were injected intravenously Comparison is ma de to CT head performed on 06/06/2018 FINDINGS: No midline shift, e xtra-axial fluid collection, or hydrocephalus is present. The visualized mastoid air cells are clear. There is no air-fluid level in the visualize d paranasal sinuses. The craniocervical junction and corpus callosum are within normal limits. There is no abnormal enhancement on postcontrast im aging. There is 1.9 cm area restricted diffusion involving the left thala mus. Additional area of restricted diffusion involving the right occipita l lobe measures 1.6 cm. There is corresponding increased FLAIR signal in these locations. There is mild blooming artifact within the right o ccipital and left thalamic infarcts compatible with petechial hemorrhage. IMPRESSION: 1. 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 Corresponding increased FLAIR signal indicates a pro cess greater than 24 hours. 2. Petechial hemorrhage within left thalamic and right occipital infarcts. No acute macroscopic hemorrhage 3. Baseline mild chronic microvascular ischemic changes. SL: [id number] at 1751 Reported and signed by: Tramaine Mulligan M.D. CC: Dylon Mansfield MD; Susan Tate NP Technologist: Fernando Garibay, RT(R)(CT)(MR) Trnscrd Date/Time/By: 06/07/2018 (178 ) : By: [email or web address] Orig Print D/T: S: 06/07/2018 (2072) PAGE 1 Signed Report - MRA NECK W/[id number] 17:43:00 FAX: Farhan Mcclellan MD [phone] [place]: St: ADM FAX: Susan Tate NP [phone] Name: SOLEDAD FRASER [facility] : 1940 Age/S: 78/F [address] [place] [address] Unit #: [id number] Loc: G.3301 [facility] [place] [address] Phys: Susan Tate NP Acct: [id number] Dis Date: Status: ADM IN PHONE #: [phone] Exam Date: 06/07/2018 1710 FAX #: [phone] Reason: subacute vs chronic i nfarct EXAMS: CPT CODE: [id number] MRA NECK W/CONT 54110 MRA neck with contrast HISTORY: Subacute versus chronic infarct PROCEDURE: 3-D qudg-dt-pjoway MR angiography of the neck arteries was performed after the intravenous injection of 18 mL of MultiHance. 3-D reconstructed images were performed. I CA stenosis indirectly reference the distal internal carotid diameter as t he denominator for stenosis measurement, utilizing consensus panel criteri a for PQRS code. (NASCET) FINDINGS: The bilateral common carotid arteries and internal carotid arteries have normal caliber. There is tort uosity of the bilateral internal carotid arteries. The bilateral vertebra l arteries have antegrade flow and normal caliber. There is moderate tort uosity of the bilateral vertebral arteries. IMPRESSION: No significant narrowing or stenosis within neck arteries identified. SL: [id number] at 1740 Reported and signed by: Tramaine Mulligan M.D. CC: Farhan Mansfield MD; Susan Tate NP Technologist: RT Karen(R)(CT)(MR) Trnscrd Date/Time/By: 06/07/2018 (7641) : By: [email or web address] Orig Print D/T: S: 06/07/2018 (2966) PAGE 1 Signed Report - MRA HEAD W/O [id number] 17:26:00 FAX: Farhan Mcclellan MD [phone] [place]: St: ADM FAX: Susan Tate NP [phone] Name: SOLEDAD FRASER [facility] : 1940 Age/S: 78/F [address] [place] [address] Blvd Unit #: [id number] Loc: G.3301 [place] [address] Phys: Susan Tate NP Acct: [id number] Dis Date: Status: ADM IN PHONE #: [phone] Exam Date: 06/07/2018 1710 FAX #: [phone] Reason: subacute vs chronic i nfarct EXAMS: CPT CODE: [id number] MRA HEAD W/O CONTRAST 14549 MRA head without contrast 06/07/2018 HISTORY: Subac farshad versus chronic infarct PROCEDURE: 3-D time of flight MR angiog [facility] [place] is performed without contrast. 3-D reconstr uction images were performed Comparison is made to [facility] med on 06/06/2018 FINDINGS: The distal vertebral arteries have smal l caliber and are tortuous. Small caliber basilar artery is noted, likely due to origin of the left posterior cerebral artery. The right pos terior communicating artery is patent. Distal internal carotid arteries, middle cerebral arteries, and anterior cerebral arteries have normal caliber. IMPRESSION: 1. No flow-limiting stenosis or a neurysm identified within [place]. 2. Small caliber ve rtebral basilar system due to origin of left [employer], a normal variant . SL: [id number] at 1726 Reported and signed by: Tramaine Mulligan M.D. CC: Farhan Mansfield MD; Susan Tate NP Techno logist: RT Karen(R)(CT)(MR) Trnscrd Date/Time /By: 06/07/2018 (1725) : By: [email or web address] Orig Print D/T: S: 06/07/2018 ( 0817) PAGE 1 Signed Report COAGULATION TIME [id number] 13:36:00* Test Item Value Reference Range Comments COAGULATION TIME ACTIVATED (test code=ACT) 117 SECONDS 105-167 [id number] 12:01:00* Test Item Value Reference Range Comments GLUBED (test code=GLUBED) 163 MG/DL 70-110 Performed by certified radial drill press set up operator at [facility] COMPREHENSIVE METABOLIC [id number] 09:14:00* Test Item Value Reference Range Comments SODIUM (test code=NA) 141 mEq/L 134-147 POTASSIUM (test code=K) 3.8 mEq/L 3.4-5.0 CHLORIDE (test code=CL) 111 mEq/L 100-108 CARBON DIOXIDE (test code=CO2) 23 mEq/L 21-33 ANION GAP (test code=GAP) 11 0-20 GLUCOSE (test code=GLU) 121 mg/dL 70-110 BLOOD UREA NITROGEN (test code=BUN) 30 mg/dL 7-18 GLOMERULAR FILTRATION RATE (test code=GFR) 47.9 70-80 Units of measure=ml/min/1.73 m2 CREATININE (test code=CREAT) 1.1 mg/dL 0.6-1.3 TOTAL PROTEIN (test code=PROT) 6.6 g/dL 6.4-8.2 ALBUMIN (test code=ALB) 2.70 g/dL 3.4-5.0 CALCIUM (test code=CA) 7.7 mg/dL 8.0-10.5 BILIRUBIN TOTAL (test code=BILT) 0.60 mg/dL 0.0-1.0 SGOT/AST (test code=AST) 530 IUnit/L 15-37 SGPT/ALT (test code=ALT) 211 IUnit/L 15-65 ALKALINE PHOSPHATASE TOTAL (test code=ALKP) 92 IUnit/L 20-125 CREATINE KINASE (CK)2018-06-07 09:14:00* Test Item Value Reference Range Comments CREATINE KINASE (CK) (test code=CK) 85408 35-232 Result is in INTERNATIONAL UNITS/LITER [id number] 09:14:00* Test Item Value Reference Range Comments MAGNESIUM (test code=MAG) 2.30 mg/dL 1.8-2.4 THYROID STIMULATING [id number] 09:14:00* Test Item Value Reference Range Comments THYROID STIMULATING HORMONE (test code=TSH) 3.52 0.42-5.47 Results in emelyn-International Units/mL [id number] 07:53:00* Test Item Value Reference Range Comments GLUBED (test code=GLUBED) 100 MG/DL 70-110 Performed by certified radial drill press set up operator at [facility] COMPREHENSIVE METABOLIC [id number] 07:42:00* Test Item Value Reference Range Comments SODIUM (test code=NA) 141 mEq/L 134-147 POTASSIUM (test code=K) 3.8 mEq/L 3.4-5.0 CHLORIDE (test code=CL) 111 mEq/L 100-108 CARBON DIOXIDE (test code=CO2) 23 mEq/L 21-33 ANION GAP (test code=GAP) 11 0-20 GLUCOSE (test code=GLU) 121 mg/dL 70-110 BLOOD UREA NITROGEN (test code=BUN) 30 mg/dL 7-18 GLOMERULAR FILTRATION RATE (test code=GFR) 47.9 70-80 Units of measure=ml/min/1.73 m2 CREATININE (test code=CREAT) 1.1 mg/dL 0.6-1.3 TOTAL PROTEIN (test code=PROT) 6.6 g/dL 6.4-8.2 ALBUMIN (test code=ALB) 2.70 g/dL 3.4-5.0 CALCIUM (test code=CA) 7.7 mg/dL 8.0-10.5 BILIRUBIN TOTAL (test code=BILT) 0.60 mg/dL 0.0-1.0 SGOT/AST (test code=AST) 530 IUnit/L 15-37 SGPT/ALT (test code=ALT) 211 IUnit/L 15-65 ALKALINE PHOSPHATASE TOTAL (test code=ALKP) 92 IUnit/L 20-125 CREATINE KINASE (CK)2018-06-07 07:42:00* Test Item Value Reference Range Comments CREATINE KINASE (CK) (test code=CK) 35-232 [id number] 07:42:00* Test Item Value Reference Range Comments MAGNESIUM (test code=MAG) 2.30 mg/dL 1.8-2.4 THYROID STIMULATING [id number] 07:42:00* Test Item Value Reference Range Comments THYROID STIMULATING HORMONE (test code=TSH) 3.52 0.42-5.47 Results in emelyn-International Units/mL - DUP VEIN [id number] 07:36:00 Name: SOLEDAD FRASER [facility] : 1940 Age/S: 78 / F [address] [place] [address] Unit #: [id number] Loc: [place] [address] Phys: Farhan Mansfield MD Acct: [id number] Dis Date: Status: ADM IN PHONE #: [phone] Exam Date: 06/07/2018 0648 FAX #: [phone] Reason: h/o syncope EXAMS: CPT CODE: [id number] DUP VEIN RUTH 24768 Clinical Indication: Syncope; Comparison: None TECHNIQUE: Sonographic evaluation of the bilateral common femoral, superficial femoral, popliteal, and visualized posterior tibial/calf veins was performed using high resolution B-mode imaging, along with pulse and color Doppler imaging. FINDINGS: Right lower extremity: Normal compressibility, phasic flow, and variation with augmentation is seen. There is no echogenic debris to suggest deep venous thrombosis. The saphenofemoral junction is unremarkable. Left lower extremity: Normal compressibility, phasic flow, and variation with augmentation is seen. There is no echogenic debris to suggest deep venous thrombosis. The saphenofemoral junction is unremarkable. IMPRESSION: No Deep Venous Thrombosis of the lower extremities. SL: CY-H at 0736 Reported and signed by: Douglas Manzo M.D. CC: Farhan Mansfield MD Technologist: Keren Stewart RDMS(A)(OB) Trnscb Date/Time: 06/07/2018 (0736) [email or web address] Orig Print D/T: S: 06/07/2018 (0739) Probe: PAGE 1 Signed Report THROMBOPLASTIN TIME [id number] 07:11:00* Test Item Value Reference Range Comments THROMBOPLASTIN TIME PARTIAL (test code=PTT) 29.3 Seconds 25.0-39.5 Therapeutic Range: 61.8-83.8 Sec Effective 04/18/2013 URINALYSIS [id number] 07:01:00* Test Item Value Reference Range Comments UA COLOR (test code=COLU) YELLOW YEL/STRAW UA APPEARANCE (test code=APPU) SL CLOUDY CLEAR UA GLUCOSE DIPSTICK (test code=DGLUU) NEGATIVE NEGATIVE UA BILIRUBIN DIPSTICK (test code=BILU) NEGATIVE NEGATIVE UA KETONE DIPSTICK (test code=KETU) TRACE NEGATIVE UA SPECIFIC GRAVITY (test code=SGU) 1.034 1.005-1.030 UA BLOOD DIPSTICK (test code=NATALIYA) 3+ NEGATIVE UA PH DIPSTICK (test code=NIKKI) 5.0 5.0-7.0 UA PROTEIN DIPSTICK (test code=PROU) 1+ NEGATIVE UA UROBILINIOGEN DIPSTICK (test code=URO) 0.2 mg/dL 0.2-1.0 UA NITRITE DIPSTICK (test code=ANA PAULA) NEGATIVE NEGATIVE UA LEUKOCYTE ESTERASE DIPSTICK (test code=LEUU) TRACE NEGATIVE UA WBC (test code=WBCU) 21-50 WBC/HPF 0-3 UA RBC (test code=RBCU) 4-10 RBC/HPF 0-3 UA BACTERIA (test code=BACU) NONE SEEN /HPF NONE SEEN UA SQUAMOUS CELLS (test code=SQU) 0-5 /HPF NONE SEEN UA MUCUS (test code=MUCU) TRACE /LPF NONE SEEN COMMENTS: Clean CatchUA CULT [id number] 07:01:00* Test Item Value Reference Range Comments UA CULTURE NEEDED? (test code=UACULT) YES,WBC>10 & EPI<=25 Criteria Culture Chk Criteria met, Urine Culture in-process. COMMENTS: Clean CatchCBC W/AUTO [id number] 07:00:00* Test Item Value Reference Range Comments WHITE BLOOD CELL (test code=WBC) 14.34 x10 3/uL 4.5-11.0 RED BLOOD CELL (test code=RBC) 4.40 x10 6/uL 3.54-5.02 HEMOGLOBIN (test code=HGB) 12.2 g/dL 11.0-15.0 HEMATOCRIT (test code=HCT) 39.2 % 33.0-45.0 MEAN CELL VOLUME (test code=MCV) 89.1 fL 81.0-99.0 MEAN CELL HGB (test code=MCH) 27.7 pg 27.0-33.0 MEAN CELL HGB CONCETRATION (test code=MCHC) 31.1 g/dL 33.0-37.0 RED CELL DISTRIBUTION WIDTH CV (test code=RDW) 13.4 % 11.5-14.5 RED CELL DISTRIBUTION WIDTH SD (test code=RDW-SD) 44.0 fL 37.0-54.0 PLATELET COUNT (test code=PLT) 276 x10 3/uL 150-400 MEAN PLATELET VOLUME (test code=MPV) 9.5 fL 7.0-9.0 NEUTROPHIL % (test code=NT%) 77.8 % 56.0-77.0 IMMATURE GRANULOCYTE % (test code=IG%) 0.4 % 0.0-2.0 LYMPHOCYTE % (test code=LY%) 13.0 % 14.0-32.0 MONOCYTE % (test code=MO%) 8.6 % 4.8-9.0 EOSINOPHIL % (test code=EO%) 0.0 % 0.3-3.7 BASOPHIL % (test code=BA%) 0.2 % 0.0-2.0 NUCLEATED RBC % (test code=NRBC%) 0.0 % 0-0 NEUTROPHIL # (test code=NT#) 11.15 x10 3/uL 2.0-7.6 IMMATURE GRANULOCYTE # (test code=IG#) 0.06 x10 3/uL 0.00-0.03 LYMPHOCYTE # (test code=LY#) 1.87 x10 3/uL 1.0-3.8 MONOCYTE # (test code=MO#) 1.23 x10 3/uL 0.1-0.8 EOSINOPHIL # (test code=EO#) 0.00 x10 3/uL 0.0-0.2 BASOPHIL # (test code=BA#) 0.03 x10 3/uL 0.0-0.2 NUCLEATED RBC # (test code=NRBC#) 0.00 x10 3/uL 0.0-0.1 MANUAL DIFF REQUIRED (test code=MDIFF) NO HGBA1C%2018-06-07 06:58:00* Test Item Value Reference Range Comments HGBA1C% (test code=HGBA1C%) 6.4 %A1C 4.8-6.0 LACTIC [id number] 06:54:00* Test Item Value Reference Range Comments LACTIC ACID (test code=LACT) 1.2 mmol/L 0.4-1.9 [id number] 00:07:00* Test Item Value Reference Range Comments GLUBED (test code=GLUBED) 179 MG/DL 70-110 Performed by certified radial drill press set up operator at [facility] - XR CHEST 1 [id number] 17:14:00 FAX: Sunil Priest MD [place]: St: ADM FAX: Farhan Mcclellan MD [phone] [facility] 1940 [facility]S: 78[facility]F [address] [place] [address] Blvd Unit #: [id number] Loc: G.3302 [place] [address] Phys: Sunil Teresa MD Acct: [id number] Dis Date: Status: ADM IN PHONE #: [phone] Exam Date: 06/06/2018 1651 FAX #: [phone] Reason: CENTRAL LINE PLACEMENT EXAMS: CPT CODE: [id number] XR CHEST 1 V 75707 PROCEDURE: CHEST TWO VIEW INDICATION: Sepsis. Central line placement. COMPARISON: Portable chest 06/06/2018 FINDINGS: Right internal jugular temporary central venous catheter with tip projecting over the expected region of the superior vena cava. Cardiovascular: Normal cardiac silhouette. Atherosclerotic calcifications. Mediastinum: No mediastinal or hilar lymphad enopathy. Lungs: No focal consolidation. No parenchymal mass. Bi basilar atelectasis. Pleura: No pleural effusion. No pneumo thorax. Soft tissues: Surgical clips are present in the left axill a. Bones: No acute osseous abnormality. Degenerative changes of t he thoracic spine. IMPRESSION: No acute radiographic abnormality. SL: [id number] Elect ronically Signed by Sonam Rios on 06/06/2018 at 7672 Reported and signed by: Soham Rios M.D. CC: Sunil Teresa MD; Farhan Mansfield MD Technologist: RT Torie(R) Trnscrd Date/Time/By: 06/06/2018 (3140) : By: [email or web address] [facility] Print D/T: S: 06/06/2018 (8095) PAGE 1 Signed Report [id number] 17:03:00* Test Item Value Reference Range Comments GLUBED (test code=GLUBED) 170 MG/DL 70-110 Performed by certified radial drill press set up operator at [facility] BASIC METABOLIC [id number] 16:17:00* Test Item Value Reference Range Comments SODIUM (test code=NA) 138 mEq/L 134-147 POTASSIUM (test code=K) 4.1 mEq/L 3.4-5.0 CHLORIDE (test code=CL) 105 mEq/L 100-108 CARBON DIOXIDE (test code=CO2) 22 mEq/L 21-33 ANION GAP (test code=GAP) 15 0-20 GLUCOSE (test code=GLU) 169 mg/dL 70-110 BLOOD UREA NITROGEN (test code=BUN) 34 mg/dL 7-18 GLOMERULAR FILTRATION RATE (test code=GFR) 47.9 70-80 Units of measure=ml/min/1.73 m2 CREATININE (test code=CREAT) 1.1 mg/dL 0.6-1.3 CALCIUM (test code=CA) 9.3 mg/dL 8.0-10.5 [id number] 16:17:00* Test Item Value Reference Range Comments TROPONIN-I (test code=TROPI) 16.300 ng/mL 0.000-0.045 Negative: <=0.045 Positive: >=0.046 Correlation with serial results, other cardiac markers andclinical findings is necessary to determine the clinicalsignificance of this result. Results using different methodologies should not be comparedto one another as quantitative results may vary by method. LACTIC ACID 2ND [id number] 16:12:00* Test Item Value Reference Range Comments LACTIC ACID 2ND REPEAT (test code=LACT2) 2.8 mmol/L 0.4-1.9 PROCALCITONIN (PCT)2018-06-06 14:35:00* Test Item Value Reference Range Comments PROCALCITONIN (PCT) (test code=PROCAL) 1.78 ng/mL 0.00-0.05 PROCALCITONIN (PCT) NORMAL RANGE (ADULT): <0.05 NG/ML. * a concentration <0.5 ng/mL represents a low risk of severe sepsis and/or septic shock.* a concentration >2 ng/mL represents a high risk of severe sepsis and/or septic shock.Nevertheless, concentrations <0.5 ng/mL do not exclude aninfection, on account of localized infections (withoutsystemic signs) which can be associated with such lowconcentrations, or a systemic infection in its initialstages (< 6 hours). Furthermore, increased procalcitonincan occur without infection. PCT concentrations between 0.5and 2.0 ng/mL should be interpreted taking into account thepatient's history. It is recommended to retest PCT within6-24 hours if any concentrations <2 ng/mL are obtained. HEPATIC FUNCTION [id number] 13:29:00* Test Item Value Reference Range Comments TOTAL PROTEIN (test code=PROT) 7.8 g/dL 6.4-8.2 ALBUMIN (test code=ALB) 3.20 g/dL 3.4-5.0 BILIRUBIN TOTAL (test code=BILT) 0.70 mg/dL 0.0-1.0 BILIRUBIN DIRECT (test code=BILD) 0.20 MG/DL 0.0-0.30 BILIRUBIN INDIRECT (test code=BILIND) 0.50 MG/DL SGOT/AST (test code=AST) 888 IUnit/L 15-37 SGPT/ALT (test code=ALT) 239 IUnit/L 15-65 ALKALINE PHOSPHATASE TOTAL (test code=ALKP) 113 IUnit/L 20-125 CREATINE KINASE (CK)2018-06-06 13:29:00* Test Item Value Reference Range Comments CREATINE KINASE (CK) (test code=CK) 57721 35-232 Result is in INTERNATIONAL UNITS/LITER [id number] 13:29:00* Test Item Value Reference Range Comments TROPONIN-I (test code=TROPI) 18.200 ng/mL 0.000-0.045 Negative: <=0.045 Positive: >=0.046 Correlation with serial results, other cardiac markers andclinical findings is necessary to determine the clinicalsignificance of this result. Results using different methodologies should not be comparedto one another as quantitative results may vary by method. LIPOPROTEIN [id number] 13:23:00* Test Item Value Reference Range Comments LIPOPROTEIN LDL (test code=LDL) 108 mg/dL 0-100 <100 [id number] NEAR OPTIMAL/ABOVE [id number] [id number] HIGH>CF=422 VERY HIGH*Guidelines provided by the National Cholesterol EducationProgram Adult Treatment Panel III LACTIC ACID [id number] 13:16:00* Test Item Value Reference Range Comments LACTIC ACID REPEAT (test code=LACTR) 3.0 mmol/l 0.4-1.9 HEPATIC FUNCTION [id number] 13:06:00* Test Item Value Reference Range Comments TOTAL PROTEIN (test code=PROT) 7.8 g/dL 6.4-8.2 ALBUMIN (test code=ALB) 3.20 g/dL 3.4-5.0 BILIRUBIN TOTAL (test code=BILT) 0.70 mg/dL 0.0-1.0 BILIRUBIN DIRECT (test code=BILD) 0.20 MG/DL 0.0-0.30 BILIRUBIN INDIRECT (test code=BILIND) 0.50 MG/DL SGOT/AST (test code=AST) 888 IUnit/L 15-37 SGPT/ALT (test code=ALT) 239 IUnit/L 15-65 ALKALINE PHOSPHATASE TOTAL (test code=ALKP) 113 IUnit/L 20-125 CREATINE KINASE (CK)2018-06-06 13:06:00* Test Item Value Reference Range Comments CREATINE KINASE (CK) (test code=CK) 35-232 [id number] 13:06:00* Test Item Value Reference Range Comments TROPONIN-I (test code=TROPI) 18.200 ng/mL 0.000-0.045 Negative: <=0.045 Positive: >=0.046 Correlation with serial results, other cardiac markers andclinical findings is necessary to determine the clinicalsignificance of this result. Results using different methodologies should not be comparedto one another as quantitative results may vary by method. [id number] 12:56:00* Test Item Value Reference Range Comments GLUBED (test code=GLUBED) 166 MG/DL 70-110 Performed by certified radial drill press set up operator at [facility] HEPATIC FUNCTION [id number] 12:47:00* Test Item Value Reference Range Comments TOTAL PROTEIN (test code=PROT) 7.8 g/dL 6.4-8.2 ALBUMIN (test code=ALB) 3.20 g/dL 3.4-5.0 BILIRUBIN TOTAL (test code=BILT) 0.70 mg/dL 0.0-1.0 BILIRUBIN DIRECT (test code=BILD) 0.20 MG/DL 0.0-0.30 BILIRUBIN INDIRECT (test code=BILIND) 0.50 MG/DL SGOT/AST (test code=AST) 888 IUnit/L 15-37 SGPT/ALT (test code=ALT) IUnit/L 15-65 ALKALINE PHOSPHATASE TOTAL (test code=ALKP) 113 IUnit/L 20-125 CREATINE KINASE (CK)2018-06-06 12:47:00* Test Item Value Reference Range Comments CREATINE KINASE (CK) (test code=CK) 35-232 [id number] 12:47:00* Test Item Value Reference Range Comments TROPONIN-I (test code=TROPI) 18.200 ng/mL 0.000-0.045 Negative: <=0.045 Positive: >=0.046 Correlation with serial results, other cardiac markers andclinical findings is necessary to determine the clinicalsignificance of this result. Results using different methodologies should not be comparedto one another as quantitative results may vary by method. [id number] 11:25:00* Test Item Value Reference Range Comments GLUBED (test code=GLUBED) 164 MG/DL 70-110 Performed by certified radial drill press set up operator at [facility] - XR FOOT 3 + V [id number] 10:32:00 FAX: Ney Cantor DO [phone] [place]: St: ADM FAX: Susan Tate NP [phone] Name: SOLEDAD FRASER [facility] : 1940 Age/S: 78/F [address] [place] [address] Unit #: [id number] Loc: [place] [address] Phys: Susan Tate NP Acct: [id number] Dis Date: Status: ADM IN PHONE #: [phone] Exam Date: 06/06/2018 0949 FAX #: [phone] Reason: fall, found down EXAMS: CPT CODE: [id number] XR FOOT 3 + [place] [address] PROCEDURE Foot, left, 3 views INDICATION: Fall from standing. Pain COMPARISON: None. FINDINGS: No acute displaced fracture or dislocation. Degenerative changes are present in the left 5th metatarsophalangeal joint. Bone minera lization is within normal limits. No expansile lytic or sclerotic lesion. No radiopaque foreign body. Soft tissues are unremarkable. No joint effusion. IMPRESSION: No ac farshad radiographic abnormality. SL: [id number] El ectronically Signed by Sonam Rios on 06/06/2018 at 1032 Reported and signed by: Soham Rios M.D. CC: Ney Corea DO; Susan Tate NP Technologist: Jeremy Pena, RT(R); Stella Hutchinson RT(R) Trnscrd Date/Time/By: 06/06/2018 (1032) : By: zain [email or web address] Orig Print D/T: S: 06/06/2018 (9364) P AGE 1 Signed Report PROTHROMBIN [id number] 10:29:00* Test Item Value Reference Range Comments PROTHROMBIN TIME PATIENT (test code=PTP) 12.6 SECONDS 9.3-12.9 INTERNATIONAL NORMAL RATIO (test code=INR) 1.1 0.8-1.2 TARGET INR BY INDICATION Indication INR1. Prophylaxis of venous thrombosis 2.0 - 3.0 (orthopedic surgery), Prophylaxis of venous thrombosis (other than high-risk surgery), Treatment of Deep Vein Thrombosis/Pulmonary Embolism, Prevention of systemic embolism - Tissue heart valves, Acute Myocardial Infarction (to prevent systemic embolism), Valvular heart disease, Atrial Fibrillation, Bileaflet mechanical valve in aortic position.2. Mechanical prosthetic valves (high risk), 2.5 - 3.5 Presence of Lupus Anticoagulant or Antiphospholipid Antibodies, Prevention of systemic embolism - Acute Myocardial Infarction (to prevent recurrent infarct). - CT HEAD/BRAIN W/O [id number] 10:25:00 Name: SOLEDAD FRASER [facility] : 1940 Age/S: 78 / F [address] [place] [address] Unit #: [id number] Loc: [facility] DANIELA [address] Phys: Susan Tate NP Acct: [id number] Dis Date: Status: ADM IN PHONE #: [phone] Exam Date: 06/06/2018 1003 FAX #: [phone] Reason: found down EXAMS: CPT CODE: [id number] CT HEAD/BRAIN W/O CONT 20844 STUDY: - CT HEAD/BRAIN W/O CONT 06/06/2018 9:23 AM Ordering Physician: Susan Tate NP Patient Name: SOLEDAD FRASER MR: [id number] : 1940; Age: 78 years y/o Female Clinical Indication: found down Comparison: January 10, 2007 TECHNIQUE: Multiple contiguous transaxial noncontrast CT images were obtained through the head. Coronal and sagittal reformatted images were prepared. DOSE: CT imaging performed at this location utilizes radiation dose optimization technique which includes one or more of the followin) Automated exposure control; 2) Adjustment of the mA and/or kV according to patient's size; 3) Use of iterative reconstruction techniques. DLP (mGy-cm): 472 FINDINGS: Interval small low-attenuation focus is seen within the left thalami and adjacent basal ganglia. Mild periventricular white matter chronic ischemic changes. No evidence of acute intracranial hemorrhage, mass effect, midline shift, or extra-axial fluid collection. The lateral ventricles, third ventricle, fourth ventricle, and basilar cisterns are appropriate for degree of atrophy present. The visualized portions of the paranasal sinuses are clear. Mastoids are clear. IMPRESSION: Interval small low-attenuation focus is seen within the left thalami and adjacent basal ganglia. This may represent subacute or chronic infarct. MRI would be helpful for further evaluation. Significant findings were communicated to Susan Tate NP on PAGE 1 Signed Report (CONTINUED) Name: SOLEDAD FRASER [facility] : 1940 Age/S: 78 / F [address] [place] [address] Unit #: [id number] Loc: [place] [address] Phys: Susan Tate NP Acct: [id number] Dis Date: Status: ADM IN PHONE #: [phone] Exam Date: 06/06/2018 1003 FAX #: [phone] Reason: found down EXAMS: CPT CODE: [id number] CT HEAD/BRAIN W/O CONT 47843 <Continued> 06/06/2018 10:20 AM. SL: [id number] at 1025 Reported and signed by: Victoria Flores D.O. CC: Ney Corea DO; Susan Tate NP Technologist:RT Majo(R)(CT) CTDI: DLP: Trnscb Date/Time: 06/06/2018 (9075) t.[email or web address] Orig Print D/T: S: 06/06/2018 (3848) CTDI: DLP: PAGE 2 Signed Report - XR FEMUR MIN 2 VWS [id number] 10:25:00 FAX: Ney Cantor DO [phone] [place]: St: ADM FAX: Susan Tate NP [phone] Name: SOLEDAD FRASER [facility] : 1940 Age/S: 78/F [address] [place] [address] Unit #: [id number] Loc: [place] [address] Phys: Susan Tate NP Acct: [id number] Dis Date: Status: ADM IN PHONE #: [phone] Exam Date: 06/06/2018 0949 FAX #: [phone] Reason: fall, found down Report Has Been Amended EXAMS: CPT CODE: [id number] XR FEMUR MIN [address] [place] [address] Addendum - 06/06/2018 SIGNED 06/06/2018 ADDENDUM: [id number] Procedure: Femur, left, 2 views at 1025 Reported and signed by: Soham Rios M.D. Report PROCEDURE: Fever, left, 2 views INDICATION: Fall from standing. Pain COMPARISON: None. FINDINGS: No acute displaced fracture or dislocation. Bone mineralization is within normal limits. No expansile lytic or sclerotic lesion. No radiop aque foreign body. Soft tissues are unremarkable. No joint effusi on. IMPRESSION: No acute radiographic abnorma lity. SL: [id number] at 1019 Reported and yasmani d by: Soham Rios M.D. PAGE 1 Signed Report (CONTINUED) FAX: Ney Cantor DO [phone] [place]: St: ADM FAX: Susan Tate NP [phone] Name: SOLEDAD SLOAN [facility] : 1940 Age/S: 78/F [address] [place] [address] Unit #: [id number] L oc: [place] [address] Phys: Susan Tate NP Acct: [id number] Dis Date: Status: ADM IN PHONE #: [phone] Exam Date: 06/06/2018 0949 FAX #: [phone] Re ason: fall, found down Report Has Been Amended EXAMS: CPT CODE: [id number] XR FEMUR MIN [address] [place] [address] <Continued> CC: Ney Corea DO; Susan Tate NP Technologist: Jeremy Pena, RT(R); Raven Hutchinson, RT(R) [facility] Date/Time/By: 06/06/2018 (1019) : By: [email or web address] Orig Print D/T: S: 06/06/2018 (1022) PAGE 2 Signed Report - XR TIBIA/FIBULA 2 V [id number] 10:24:00 FAX: Ney Cantor DO [phone] [place]: St: ADM FAX: Susan Tate NP [phone] Name: SOLEDAD FRASER [facility] [place] : 1940 Age/S: 78/F [address] [place] [address] Unit #: [id number] Loc: [place] [address] Phys: Susan Tate NP Acct: [id number] Dis Date: Status: ADM IN PHONE #: [phone] Exam Date: 06/06/2018 0949 FAX #: [phone] Reason: fall, found down EXAMS: CPT CODE: [id number] XR TIBIA/FIBUL[place] [address] PROCEDURE: Tibia/fibula, left, 2 views INDICATION: Fall from standing. Pain COMPARISON: None. FINDING S: No acute displaced fracture or dislocation. Bon e mineralization is within normal limits. No expansile lytic or sclerotic lesion. No radiopaque foreign body. Soft tissues are unremarkabl e. No joint effusion. Tricompartmental degenerative changes present in the knee, as evidenced by joint space narrowing, subcho ndral sclerosis, and marginal osteophytosis, most prominent in the medial compartment. Chondrocalcinosis is present in the medial and lateral keyana rtments. IMPRESSION: No acute radiographic ab normality. Degenerative changes of the knee. SL: [id number] Electronically Signed by Sonam Rios on 05/19 at 1024 Reported and signed by: Soham Rios M.D. CC: Ney Coera DO; Susan Tate NP Technologi st: Jeremy Pena, RT(R); Raven Hutchinson RT(R) Trnnerd Date/Time/By: 06/06/2018 (1024) : By: [email or web address] Orig Print D/T: S: 06/06/2018 (1022) PAGE 1 Signed Report - XR HIP W/PEL UNI 2+V [id number] 10:21:00 FAX: Ney Cantor DO [phone] [place]: St: REG FAX: Susan Tate NP [phone] Name: SOLEDAD FRASER [facility] : 1940 Age/S: 78/F [address] [place] [address] Unit #: [id number] Loc: [place] [address] Phys: Susan Tate NP Acct: [id number] Dis Date: Status: REG ER PHONE #: [phone] Exam Date: 06/06/2018 0949 FAX #: [phone] Reason: fall, found down EXAMS: CPT CODE: [id number] XR HIP W/PEL UNI 2+[place] [address] PROCEDURE: Hip, left, 2 views. Pelvis, AP INDICATION: Fall from standing. Pain COMPARISON: None. FIN DINGS: No acute displaced fracture or dislocation. Bone mineralization is within normal limits. No expansile lytic or scler otic lesion. No radiopaque foreign body. Soft tissues are unremar kable. No joint effusion. Degenerative changes of th e lumbar spine and bilateral sacroiliac joints. IMPRESSION : No acute radiographic abnormality. SL: Shweta [id number] at 1021 Reported and signed by: Soham Rios M.D. CC: Ney Corea DO; Susan Tate NP Technologist: Jeremy Pena, RT(R); Raven Hutchinson RT(R) Trnnerd Date/Time/By: (1021) : By: [email or web address] Orig Print D/T: S: 06/06/2018 (1024) PAGE 1 Signed Report - XR FEMUR MIN 2 VWS [id number] 10:19:00 FAX: Ney Cantor DO [phone] [place]: St: REG FAX: Susan Tate NP [phone] Name: SOLEDAD FRASER [facility] : 1940 Age/S: 78/F [address] [place] [address] Unit #: [id number] [facility] [address] Phys: Susan Tate SHELLS INSPECTOR Acct: [id number] Dis Date: Status: REG ER PHONE #: [phone] Exam Date: 06/06/2018 0949 FAX #: [phone] Reason: fall, found down EXAMS: CPT CODE: [id number] XR FEMUR MIN [address] [place] [address] PROCEDURE: Fever, left, 2 views INDICATION: Fall from standing. Pain COMPARISON: None. FINDINGS: No acute displaced fracture or dislocation. Bone miner operator alization is within normal limits. No expansile lytic or sclerotic lesion . No radiopaque foreign body. Soft tissues are unremarkable. No joint effusion. IMPRESSION: No a cute radiographic abnormality. SL: [id number] E lectronically Signed by Sonam Rios on 06/06/2018 at 1019 Reported and signed by: Soham Rios M.D. CC: Ney orta DO; Susan Tate SHELLS INSPECTOR Technologist: Jeremy Pena, RT(R); Raven Hutchinson RT(R) Trnscrd Date/Time/By: 06/06/2018 (1019) : By: [email or web address] Orig Print D/T: S: 06/06/2018 (1022) PAGE 1 Signed Report CBC W/AUTO [id number] 10:17:00* Test Item Value Reference Range Comments WHITE BLOOD CELL (test code=WBC) 15.57 x10 3/uL 4.5-11.0 RED BLOOD CELL (test code=RBC) 5.48 x10 6/uL 3.54-5.02 HEMOGLOBIN (test code=HGB) 15.4 g/dL 11.0-15.0 HEMATOCRIT (test code=HCT) 48.5 % 33.0-45.0 MEAN CELL VOLUME (test code=MCV) 88.5 fL 81.0-99.0 MEAN CELL HGB (test code=MCH) 28.1 pg 27.0-33.0 MEAN CELL HGB CONCETRATION (test code=MCHC) 31.8 g/dL 33.0-37.0 RED CELL DISTRIBUTION WIDTH CV (test code=RDW) 13.4 % 11.5-14.5 RED CELL DISTRIBUTION WIDTH SD (test code=RDW-SD) 43.4 fL 37.0-54.0 PLATELET COUNT (test code=PLT) 348 x10 3/uL 150-400 MEAN PLATELET VOLUME (test code=MPV) 10.1 fL 7.0-9.0 NEUTROPHIL % (test code=NT%) 86.9 % 56.0-77.0 IMMATURE GRANULOCYTE % (test code=IG%) 0.6 % 0.0-2.0 LYMPHOCYTE % (test code=LY%) 7.1 % 14.0-32.0 MONOCYTE % (test code=MO%) 5.2 % 4.8-9.0 EOSINOPHIL % (test code=EO%) 0.0 % 0.3-3.7 BASOPHIL % (test code=BA%) 0.2 % 0.0-2.0 NUCLEATED RBC % (test code=NRBC%) 0.0 % 0-0 NEUTROPHIL # (test code=NT#) 13.53 x10 3/uL 2.0-7.6 IMMATURE GRANULOCYTE # (test code=IG#) 0.09 x10 3/uL 0.00-0.03 LYMPHOCYTE # (test code=LY#) 1.11 x10 3/uL 1.0-3.8 MONOCYTE # (test code=MO#) 0.81 x10 3/uL 0.1-0.8 EOSINOPHIL # (test code=EO#) 0.00 x10 3/uL 0.0-0.2 BASOPHIL # (test code=BA#) 0.03 x10 3/uL 0.0-0.2 NUCLEATED RBC # (test code=NRBC#) 0.00 x10 3/uL 0.0-0.1 MANUAL DIFF REQUIRED (test code=MDIFF) NO - XR CHEST 1 [id number] 10:15:00 FAX: Ney Cantor DO [phone] [place]: St: REG FAX: Susan Tate NP [phone] Name: SOLEADD FRASER [facility] : 1940 Age/S: 78/F [address] [place] [address] Unit #: [id number] Loc: [place] [address] Phys: Susan Tate NP Acct: [id number] Dis Date: Status: REG ER PHONE #: [phone] Exam Date: 06/06/2018947 FAX #: [phone] Reason: found down EXAMS: CPT CODE: [id number] XR CHEST 1 V 84104 CHEST 1 VIEW: 06/06/2018 COMPARISON: January 10, 2007 CLINICAL HISTORY: found down FINDINGS: Cardiomediastinal silhouette is a within normal limits. Lungs appear grossly clear. There is no pneumothorax. No pleural effusions are seen. Surgical clips are present in the left lateral chest wall/left axillary region. IMPRESSION: No acute pul monary disease. Electronically Signed by Sonam Sol on 2018 at 1015 Reported and signed by: Miquel Sol M.D. CC: Ney Corea DO; Susan Tate NP Technologist: Jeremy Pena, RT(R); Raven Hutchinson, RT(R) Trnscrd Lux e/Time/By: 06/06/2018 (1015) : By: [email or web address] Orig Print D/T: S: 2018 (9458) PAGE 1 Signed Report TROPONIN-I [id number] 09:56:00* Test Item Value Reference Range Comments TROPONIN-I RAPID (test code=TROPIRAP) 11.22 ng/mL 0.00-0.08 Performed by certified radial drill press set up operator at [facility] Global Task Force with joint leadership from the EuropeanSociety of Cardiology (ESC), the [place] [employer] Foundation (ACCF), the [place] [employer] Association(AHA) and the World Heart Federation (WHF) refined past criteria of myocardial infarction (AR) with a universal definition of myocardial infarction that supports the use of cTnI as a preferred biomarker for myocardial injury. The universal definition of AR, according to this taskforce, is defined as a typical rise and gradual fall ofcardiac biomarkers (preferably troponin) with at least onevalue above the 99th percentile of the upper reference limit (URL) together with evidence of myocardial ischemia with at least one of the following:* ischemic symptoms,* pathological Q waves on electrocardiogram (ECG),* ischemic ECG changes,* or imaging evidence of new loss of viable myocardium or new regional wall motion abnormality. An elevated troponin value alone is not sufficient todiagnose a myocardial infarction. Rather, the patient sclinical presentation (history, physical exam) and ECGshould be used in conjunction with troponin in thediagnostic evaluation of suspected myocardial infarction. Aserial sampling protocol is recommended to facilitate the identification of temporal changes in troponin levels characteristic of AR. LACTIC ACID [id number] 09:51:00* Test Item Value Reference Range Comments LACTIC ACID POC (test code=LACTP) 3.8 MMOL/L 0.90-1.70 Performed by certified radial drill press set up operator at [facility] CHEMISTRY 8 [id number] 09:51:00* Test Item Value Reference Range Comments ISTAT-SODIUM (test code=NAP) MMOL/L 134-147 ISTAT-POTASSIUM (test code=KP) MMOL/L 3.4-5.0 ISTAT-CHLORIDE (test code=CLP) MMOL/L 100-108 ISTAT CARBON DIOXIDE (test code=ISTAT-CO2) mmol/L 21-33 ISTAT CALCIUM IONIZED (test code=ISTAT-RENU) MG/DL 1.12-1.32 ISTAT-GLUCOSE (test code=GLUP) MG/DL 70-110 ISTAT-BUN (test code=BUNP) MG/DL 7-18 BEDSIDE CREATININE (test code=CREATBED) MG/DL 0.6-1.3 GLOMERULAR FILTRATION RATE POC (test code=GFRBED) 51 ML/MIN CHEMISTRY 8 [id number] 09:51:00* Test Item Value Reference Range Comments ISTAT-SODIUM (test code=NAP) 138 MMOL/L 134-147 ISTAT-POTASSIUM (test code=KP) 5.6 MMOL/L 3.4-5.0 ISTAT-CHLORIDE (test code=CLP) 104 MMOL/L 100-108 Performed by certified radial drill press set up operator at [facility] ISTAT CARBON DIOXIDE (test code=ISTAT-CO2) 25.0 mmol/L 21-33 ISTAT CALCIUM IONIZED (test code=ISTAT-RENU) 0.99 MG/DL 1.12-1.32 ISTAT-GLUCOSE (test code=GLUP) 192 MG/DL 70-110 ISTAT-BUN (test code=BUNP) 43 MG/DL 7-18 BEDSIDE CREATININE (test code=CREATBED) 1.1 MG/DL 0.6-1.3 GLOMERULAR FILTRATION RATE POC (test code=GFRBED) 51 ML/MIN
[2018-08-22 09:34] LABS: BILIRUBIN,URINE NEGATIVE (NEGATIVE); CLARITY,URINE CLOUDY (CLEAR); COLOR,URINE YELLOW (YELLOW); KETONES,URINE NEGATIVE (NEGATIVE); LEUKOCYTE ESTERASE ,URINE MODERATE (NEGATIVE); NITRITE,URINE NEGATIVE (NEGATIVE); PROTEIN,URINE DIPSTICK TRACE (NEGATIVE); URINE UROBILINOGEN 1 mg/dL (0.2 - 1)
[2018-08-22 09:34] LABS: BASOPHILS # (AUTO) 0.1 (0.0-0.1); BASOPHILS % 0.9 % (0.0-1.0); EOSINOPHILS # (AUTO) 0.1 (0.0-0.4); EOSINOPHILS % 1.7 % (0.0-6.0); HEMATOCRIT 35.6 % (34.2-44.1); HEMOGLOBIN 11.3 g/dL (12.0-16.0); LYMPHOCYTES # (AUTO) 2.7 (1.0-3.2); LYMPHOCYTES % 35.8 % (18.0-39.1); MEAN CORPUSCULAR HEMOGLOBIN 27.3 pg (28-32); MEAN CORPUSCULAR HGB CONC 31.7 g/dL (31-35); MONOCYTES # (AUTO) 0.5 (0.2-0.8); NEUTROPHILS # (AUTO) 4.2 (2.1-6.9); NEUTROPHILS % 55.5 % (38.7-80.0); PLATELET COUNT 491 x10e3/uL (140-360); RED BLOOD COUNT 4.14 x10e6/uL (3.6-5.1); RED CELL DISTRIBUTION WIDTH 14.6 % (11.7-14.4)
[2018-08-22 09:39] LABS: INR 0.93
[2018-08-22 09:40] LABS: PARTIAL THROMBOPLASTIN TIME 31.8 seconds (23.8-35.5)
[2018-08-22] MEDS ORDERED: SODIUM CHLORIDE 0.9% 1000ML 1,000 ML IV ONE (09:45)
[2018-08-22 09:46] LABS: ALANINE AMINOTRANSFERASE 9 IU/L (0-55); ALBUMIN 3.7 g/dL (3.5-5.0); ALBUMIN/GLOBULIN RATIO 0.9 (0.8-2.0); ALKALINE PHOSPHATASE 116 IU/L (40-150); ANION GAP 13.6 mmol/L (8-16); BLOOD UREA NITROGEN 13 mg/dL (7-26); BUN/CREATININE RATIO 15 (6-25); CALCIUM 10.1 mg/dL (8.4-10.2); CARBON DIOXIDE 25 mmol/L (22-29); CHLORIDE 104 mmol/L (98-107); CREATINE KINASE 37 IU/L (29-168); CREATININE, SERUM 0.85 mg/dL (0.57-1.11); EST GLOMERULAR FILTRATION RATE > 60 ML/MIN (60-); GLUCOSE 138 mg/dL (74-118); LIPASE 82 U/L (8-78); MAGNESIUM 1.7 MG/DL (1.3-2.1); POTASSIUM 3.6 mmol/L (3.5-5.1); SODIUM 139 mmol/L (136-145)
[2018-08-22 10:00] LABS: BACTERIA,URINE FEW /HPF; EPITHELIAL CELLS,URINE MANY /LPF
[2018-08-22] MEDS ORDERED: LEVOFLOXACIN 500MG/D5W 100ML 100 ML IV ONE (10:15)
--- NOTE | 2018-08-22 10:46 | Diagnostic Imaging Report ---
Examination: Single AP view of the chest. COMPARISON: None. INDICATION: Abdominal pain DISCUSSION: Lungs are well-inflated and without focal airspace consolidation, pleural effusion, or pneumothorax. Tortuous thoracic aorta with otherwise normal cardiomediastinal contour when accounting for portable, AP technique. No acute osseous abnormality. IMPRESSION: 1. No acute cardiopulmonary abnormalities. Signed by: Dr. Mehdi Monet M.D. on 08/22/2018 10:43 AM
--- NOTE | 2018-08-22 11:30 | Diagnostic Imaging Report ---
EXAMINATION: CT of the abdomen and pelvis without contrast. TECHNIQUE: Spiral CT images of the abdomen and pelvis were performed from the lung bases to the lesser trochanters. No intravenous contrast was given per patient reported history of iodine allergy. Oral Gastrografin was administered. Coronal and sagittal reformatted images were obtained. COMPARISON: None. CLINICAL HISTORY:Right lower quadrant abdominal pain DISCUSSION: ABSENCE OF INTRAVENOUS CONTRAST DECREASES SENSITIVITY FOR DETECTION OF FOCAL LESIONS AND VASCULAR PATHOLOGY. ABDOMEN/PELVIS: LOWER THORAX: Calcified mediastinal and right hilar lymph nodes. Minimal reticular and groundglass opacities in the dependent lower lobes compatible with subsegmental atelectasis or age-related fibrotic changes. Calcified granuloma right middle lobe partially visualized. HEPATOBILIARY: No focal hepatic lesion with the exception of scattered calcified granulomata. No intrahepatic biliary ductal dilatation. Multiple small radiopaque calculi in the dependent portion of the gallbladder. No pericholecystic inflammation. SPLEEN: No splenomegaly. PANCREAS: No focal masses or ductal dilatation. ADRENALS: Bilateral adrenal thickening without discrete nodule. KIDNEYS/URETERS: 1.3 cm nonobstructing left lower pole renal calculus 1.1 cm right renal parenchymal hypoattenuating lesion measures 1.2 cm with average internal attenuation 0 Hounsfield units. Exophytic left lower pole low-attenuation lesion measures 3.8 cm with average internal attenuation 10 Hounsfield units (series 2 image 44), likely representing cysts. No ureteral calculi. PELVIC ORGANS/BLADDER: The urinary bladder is incompletely distended but otherwise unremarkable. The uterus is anteflexed with multiple dystrophic calcifications. No adnexal mass. PERITONEUM/RETROPERITONEUM: No ascites. No pneumoperitoneum. LYMPH NODES: No pelvic sidewall, retroperitoneal, or mesenteric lymphadenopathy. VESSELS: Limited evaluation without intravenous contrast. The abdominal aorta is not aneurysmal. Atherosclerotic calcification of the abdominal aorta and iliac arterial systems. GI TRACT: A large amount of fecal material is noted in the rectum. There are scattered descending and sigmoid colon diverticula without wall thickening or adjacent inflammatory change. Diverticula at lesser concentration are noted along the ascending and transverse colon. The appendix is normal. No small bowel dilatation to suggest obstruction. BONES AND SOFT TISSUES: No focal soft tissue abnormalities. Postsurgical changes of the low anterior abdominal wall. No osseous destructive lesions. Multilevel degenerative disc changes and facet arthropathy of the lumbar spine. IMPRESSION: No acute intra-abdominal or pelvic CT abnormalities. Normal appendix. Cholelithiasis without CT findings of acute cholecystitis. 1.3 cm nonobstructing left lower pole renal calculus. Large bowel diverticulosis without findings of diverticulitis. Atherosclerotic vascular disease. Signed by: Dr. Mehdi Monet M.D. on 08/22/2018 11:26 AM
[2018-08-22] MEDS ORDERED: CLOPIDOGREL75 MG PO (11:38)
[2018-08-22] MEDS ORDERED: MIRALAX17 GM (11:38)
[2018-08-22] MEDS ORDERED: METFORMIN HCL500 MG PO (11:38)
[2018-08-22] MEDS ORDERED: OMEPRAZOLE40 MG (11:38)
[2018-08-22] MEDS ORDERED: LEVOTHYROXINE112 MCG PO (11:38)
[2018-08-22] MEDS ORDERED: LOVASTATIN10 MG (11:38)
[2018-08-22] MEDS ORDERED: METOPROLOL TART25 MG PO (11:38)
[2018-08-22] MEDS ORDERED: CALCET TABLET1 EACH (11:38)
--- NOTE | 2018-08-22 14:20 | NUR ---
called [facility] to take pt home via van
[2018-08-22] MEDS ORDERED: LIDOCAINE 5% PATCH TP NR (15:00)
[2018-08-22 15:28] VITALS: BP 168/87
== END 2018-08-22 15:10 | disposition home or self-care (01) ==
LOC: ER 08:27
DX: N30.01 Acute cystitis with hematuria (principal); Z88.5 Allergy status to narcotic agent; Z88.0 Allergy status to penicillin; Z88.2 Allergy status to sulfonamides; Z88.8 Allergy status to other drugs, medicaments and biological substances; Z88.1 Allergy status to other antibiotic agents; Z91.041 Radiographic dye allergy status; I10 Essential (primary) hypertension; E11.9 Type 2 diabetes mellitus without complications; E03.9 Hypothyroidism, unspecified; K21.9 Gastro-esophageal reflux disease without esophagitis; Z85.3 Personal history of malignant neoplasm of breast; Z82.49 Family history of ischemic heart disease and other diseases of the circulatory system
CPT/HCPCS: 36415; 71045; 74176; 80053; 81001; 82550; 82553; 83690; 83735; 84484; 85025; 85610; 85730; 87040; 87086; 99284; J1956; J7030